=== PATIENT | male | born 1965 | race Caucasian/White ===

== ENCOUNTER 2016-10-10 08:35 | Inpatient (IN) | payer OTHER ==
[2016-10-10 09:45] VITALS: BMI 28.3
--- NOTE | 2016-10-10 11:52 | HP ---
CIWA Score - CIWA Score Nausea/Vomitin (N/V/D) Muscle Tremors: 4-Moderate,w/Arms Extend Anxiety: 4-Mod. Anxious/Guarded Agitation: 4-Moderately Restless Paroxysmal Sweats: 3 Orientation: 0-Oriented Tacttile Disturbances: 3-Moderate Itch/Numb/Burn Auditory Disturbances: 0-None Visual Disturbances: 0-None Headache: 0-None Present CIWA-Ar Total Score: 23 Admission ROS [facility] - HPI Chief Complaint: DETOX TX FOR ALCOHOL DEPENDENCE Allergies/Adverse Reactions: Allergies Allergy/AdvReac Type Severity Reaction Status Date / Time Fish Containing Products Allergy Severe Nausea Verified 10/10/16 10:51 No Known Drug Allergies Allergy Verified 10/10/16 10:51 History of Present Illness: 51 Y/O H/M WITH A HX OF ALCOHOL DEPENDENCE ON METHADONE MAINTENANCE SEEKING DETOX TX Exam Limitations: No Limitations - Ebola screening Have you traveled outside of the country in the last 21 days: No Have you had contact with anyone from an Ebola affected area: No Have you been sick,other than usual withdrawal symptoms: No Do you have a fever: No - Review of Systems Constitutional: Chills, Loss of Appetite, Night Sweats, Changes in sleep (ON SEROQUEL) EENT: reports: Blurred Vision (WEARS READING GLASSES), Tearing, Nose Congestion , Dental Problems (BILATERAL DENTURES) Respiratory: reports: No Symptoms reported Cardiac: reports: Lightheadedness GI: reports: Constipated, Diarrhea, Nausea, Poor Appetite, Poor Fluid Intake, Vomiting, Abdominal cramping : reports: Frequency Musculoskeletal: reports: Back Pain, Joint Pain, Muscle Pain Neuro: reports: Tremors, Unsteady Gait, Dizziness Endocrine: reports: No Symptoms Reported Hematology: reports: Anemia Psychiatric: reports: Orientated x3, Agitated, Anxious, Depressed Other Systems: Reviewed and Negative Patient History - Patient Medical History Hx Anemia: No Hx Asthma: No Hx Chronic Obstructive Pulmonary Disease (COPD): No Hx Cancer: No Hx Cardiac Disorders: No Hx Congestive Heart Failure: No Hx Hypertension: No Hx Hypercholesterolemia: No Hx Pacemaker: No HX Cerebrovascular Accident: No Hx Seizures: No Hx Dementia: No Hx Diabetes: No Hx Gastrointestinal Disorders: No Hx Liver Disease: No Hx Genitourinary Disorders: No Hx Sexually Transmitted Disorders: No Hx Renal Disease (ESRD): No Hx Thyroid Disease: No Hx Human Immunodeficiency Virus (HIV): No Hx Hepatitis C: Yes Hx Depression: Yes Hx Suicide Attempt: Yes (Tried to cut wrist in 2014;DENIES CURRENT IDEATIONS) Hx Schizophrenia: No - Patient Surgical History Past Surgical History: Yes Hx Orthopedic Surgery: Yes (2006 r ankle fx) Anesthesia Reaction: No - PPD History Previous Implant?: Yes Documented Results: Negative w/o proof Implanted On Prior R Admission?: No PPD to be Administered?: Yes - Reproductive History Patient is a Female of Child Bearing Age (11 -55 yrs old): No (MALE) - Smoking Cessation Smoking history: Current every day smoker Have you smoked in the past 12 months: Yes Aproximately how many cigarettes per day: 10 Hx Chewing Tobacco Use: No Initiated information on smoking cessation: Yes 'Breaking Loose' booklet given: 10/10/16 - Substance & Tx. History Hx Alcohol Use: Yes (BEER) Hx Substance Use: Yes (HEROIN/VODKA) Substance Use Type: Alcohol, Heroin Hx Substance Use Treatment: Yes ([facility]) - Substances Abused Alcohol Route: Oral Frequency: Daily Amount used: 12 pk beer Age of first use: 21 Date of Last Use: 10/08/16 Heroin Route: Inhalation Frequency: Daily Amount used: 2 bags Age of first use: 22 Date of Last Use: 10/09/16 Family Disease History - Family Disease History Family Disease History: Diabetes: Father (dec'd ~55 from a fall, hx dialysis), Other: Grandparent (all dec'd natural causes), Father, Mother (a&w), Brother (4 a&w), Sister (3 a&w), Son (1 a&w) Admission Physical Exam [facility] - Vital Signs Vital Signs: Vital Signs - 24 hr 10/10/16 09:43 Temperature 96.8 F L Pulse Rate 77 Respiratory 18 Rate Blood Pressure 154/93 - Physical General Appearance: Yes: Moderate Distress, Irritable, Anxious HEENTM: Yes: EOMI, Normocephalic, TISH, Pharynx Normal, Nasal Congestion, Rhinorrhea Respiratory: Yes: Chest Non-Tender, Lungs Clear, Normal Breath Sounds, No Respiratory Distress Neck: Yes: Supple, Trachea in good position Breast: Yes: Breast Exam Deferred Cardiology: Yes: Regular Rhythm, Regular Rate, S1, S2 Abdominal: Yes: Normal Bowel Sounds, Non Tender, Soft Genitourinary: Yes: Other (N/C) Musculoskeletal: Yes: full range of Motion, Gait Steady Extremities: Yes: Normal Range of Motion, Non-Tender 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 urge to avoid etoh. he states he does not have sexual relations or engage in ivdu. he is looking forward to getting treated. (2) Hepatitis C antibody test positive Current Visit: Yes Status: Chronic Comment: Completed U/S Of Abdomen - Reiviewd results with patient, re-scheduled to see Lida Le for f/u. (3) Methadone maintenance therapy patient Current Visit: Yes Status: Chronic Comment: states comfortable on current dose, monitor. (4) Alcohol dependence with uncomplicated withdrawal Current Visit: Yes Status: Acute (5) Nicotine dependence Current Visit: Yes Status: Chronic Qualifiers: Nicotine product type: cigarettes Substance use status: uncomplicated Qualified Code(s): F17.210 - Nicotine dependence, cigarettes, uncomplicated Cleared for Admission S - Detox or Rehab [facility] Level of Care: Medically Managed Detox Regimen/Protocol: Librium [facility] Breath Alcohol Content Breath Alcohol Content: 0 Urine Drug Screen - Results Drug Screen Negative: No Urine Drug Screen Results: OPI-Opiates, BZO-Benzodiazepines, MTD-Methadone, TCA- Tricyclic Antidepress
[2016-10-10] MEDS ORDERED: guaiFENesin/D-METHORPHAN HB 10 ML UNIT-DOSE CUPS PO PRN (12:00)
[2016-10-10] MEDS ORDERED: MAGNESIUM CITRATE 300 ML BOTTLE PO PRN (12:00)
[2016-10-10] MEDS ORDERED: chlordiazePOXIDE HCL 25 MG CAPSULE PO PRN (12:00)
[2016-10-10] MEDS ORDERED: P-EPHED 60MG/TRIPROLIDI 2.5MG TABLET PO PRN (12:00)
[2016-10-10] MEDS ORDERED: diphenhydrAMINE HCL 50 MG CAPSULE PO PRN (12:00)
[2016-10-10] MEDS ORDERED: LOPERAMIDE HCL 2 MG CAPSULE PO PRN (12:00)
[2016-10-10] MEDS ORDERED: MAGNESIUM HYDROX 2400MG/30ML ORAL SUSPENSION 30 ML CUP PO PRN (12:00)
[2016-10-10] MEDS ORDERED: ACETAMINOPHEN 325 MG TABLET (FP) PO PRN (12:00)
[2016-10-10] MEDS ORDERED: MAG HYDROX/AL HYDROX/SIMETH 30 ML UNIT-DOSE CUP PO PRN (12:00)
[2016-10-10] MEDS ORDERED: NICOTINE POLACRILEX 2 MG GUM BUC PRN (12:00)
[2016-10-10] MEDS ORDERED: hydrOXYzine PAMOATE 25 MG CAPSULE (FP) PO PRN (12:00)
[2016-10-10] MEDS ORDERED: MENTHOL/PHENOL 1 EACH UD MM PRN (12:00)
[2016-10-10] MEDS ORDERED: IBUPROFEN 400 MG TABLET (FP) PO PRN (12:00)
[2016-10-10] MEDS ORDERED: chlordiazePOXIDE HCL 25 MG CAPSULE PO ONE (12:12)
[2016-10-10] MEDS: NICOTINE 14 MG/24 HOURS TOPICAL PATCH TD SCH (13:06)
[2016-10-10 16:05] LABS: URINE APPEARANCE CLEAR; URINE BILIRUBIN NEGATIVE (NEGATIVE); URINE BLOOD NEGATIVE (NEGATIVE); URINE COLOR AMBER; URINE GLUCOSE (UA) NEGATIVE (NEGATIVE); URINE KETONE NEGATIVE (NEGATIVE); URINE LEUK ESTERASE NEGATIVE (NEGATIVE); URINE NITRITE NEGATIVE (NEGATIVE); URINE PROTEIN NEGATIVE (NEGATIVE); URINE UROBILINOGEN 4.0 E.U/dl E.U./dl (0.2-1.0)
[2016-10-10] MEDS: chlordiazePOXIDE HCL 25 MG CAPSULE PO SCH ×2 (17:33→22:32)
[2016-10-10] MEDS: THIAMINE HCL 100 MG TABLET (FP) PO SCH (22:32)
[2016-10-11] MEDS: METHADONE HCL 40 MG DISPERSABLE TABLET PO SCH (05:38)
[2016-10-11] MEDS: chlordiazePOXIDE HCL 25 MG CAPSULE PO SCH ×4 (05:38→22:21)
--- NOTE | 2016-10-11 09:46 | PN ---
S CIWA - CIWA Score Nausea/Vomitin-No Nausea/No Vomiting Muscle Tremors: 4-Moderate,w/Arms Extend Anxiety: 3 Agitation: 3 Paroxysmal Sweats: 3 Orientation: 0-Oriented Tacttile Disturbances: 0-None Auditory Disturbances: 0-None Visual Disturbances: 0-None Headache: 1-Very Mild CIWA-Ar Total Score: 14 S Progress Note (SOAP) Subjective: shakes sweats interrupted sleep body aches Objective: 10/11/16 09:45 Vital Signs Temperature 98.1 F 10/11/16 06:30 Pulse Rate 66 10/11/16 06:30 Respiratory Rate 16 10/11/16 06:30 Blood Pressure 140/82 10/11/16 06:30 O2 Sat by Pulse Oximetry (%) Laboratory Tests 10/10/16 15:00 Urine Color Chasidy Urine Appearance Clear Urine pH 5.0 Ur Specific [place] 1.030 Urine Protein Negative Urine Glucose (UA) Negative Urine Ketones Negative Urine Blood Negative Urine Nitrite Negative Urine Bilirubin Negative Urine Urobilinogen 4.0 e.u/dl Ur Leukocyte Esterase Negative labs pending awake/alert ambulating no acute distress Assessment: 10/11/16 09:45 withdrawal sx Plan: continue detox increase fluids labs pending
[2016-10-11] MEDS: NICOTINE 14 MG/24 HOURS TOPICAL PATCH TD SCH (10:27)
[2016-10-11] MEDS: PRENATAL VITAMINS W/ FOLIC ACID TABLET (FP) PO SCH (10:28)
[2016-10-11 10:32] LABS: MCH 33.2 pg (25.7-33.7); MEAN CELL VOLUME 97.7 fl (80-96); MEAN PLT VOLUME 9.7 fl (7.5-11.1); PLATELET COUNT 173 K/MM3 (134-434); RDW 12.8 % (11.9-15.9); WHITE BLOOD COUNT 4.3 K/mm3 (4.0-10.0)
[2016-10-11 10:33] LABS: ALBUMIN 3.7 g/dl (3.4-5.0); ANION GAP 4 (8-16); CALCIUM 8.8 mg/dL (8.5-10.1); CO2 32 mmol/L (21-32); CREATININE 0.8 mg/dL (0.7-1.3); GLUCOSE,RANDOM 100 mg/dL (74-106); SGOT/AST 173 U/L (15-37); SGPT/ALT 193 U/L (12-78)
[2016-10-11 10:51] LABS: ALK PHOS 128 U/L (45-117); BILIRUBIN,TOTAL 0.6 mg/dL (0.2-1.0); TOT PROT 8.3 g/dl (6.4-8.2)
[2016-10-11 11:01] LABS: SICKLE CELL SCREEN NEGATIVE (NEGATIVE)
--- NOTE | 2016-10-11 11:51 | EKG ---
Test Reason : Blood Pressure : / mmHG Vent. Rate : 063 BPM Atrial Rate : 063 BPM P-R Int : 130 ms QRS Dur : 086 ms QT Int : 502 ms P-R-T Axes : 054 046 069 degrees QTc Int : 513 ms NORMAL SINUS RHYTHM PROLONGED QT ABNORMAL ECG NO PREVIOUS ECGS AVAILABLE Confirmed by CONCEPCION AVILA, EBONY ([id number]) on 10/11/2016 11:50:42 AM Referred By: Ponce Dillon Confirmed By:EBONY JAVIER MD
--- NOTE | 2016-10-11 12:35 | CONSULT ---
[facility] Psychiatric Consult - Data Date of interview: 10/11/16 Admission source: [facility] HIV clinic Identifying data: Mr Moore is a 51 years old single male, father of a 25 years old son, unemployed on SSD, living in a [facility] subsidized room Substance Abuse History: - Smoking Cessation. Smoking history: Current every day smoker. Have you smoked in the past 12 months: Yes. Aproximately how many cigarettes per day: 10. Hx Chewing Tobacco Use: No. Initiated information on smoking cessation: Yes. 'Breaking Loose' booklet given: 10/10/16. - Substance & Tx. History. Hx Alcohol Use: Yes (BEER). Hx Substance Use: Yes (HEROIN/VODKA ). Substance Use Type: Alcohol, Heroin. Hx Substance Use Treatment: Yes ([facility]). - Substances Abused. Alcohol. Route: Oral. Frequency: Daily. Amount used: 12 pk beer. Age of first use: 21. Date of Last Use: 10/08. Heroin. Route: Inhalation. Frequency: Daily. Amount used: 2 bags. Age of first use: 22. Date of Last Use: 10/09/16 Medical History: No significant medical problem. He is on Methadone 80 mg po daily. Smokes 10 cigarettes daily Psychiatric History: Patient is a poor, unreliable historian. Reports that his first psychiatric contact was in 2013 when he made a suicidal attempt by cutting his wrist. He was taken to [facility] ED where he was observed and discharged on Seroquel. He has been attending [facility] since [address] Boland who prescribed him Seroquel 300 mg po HS. Claims he took it last night. Denies history of previous hospitalization Mental Status Exam - Mental Status Exam Alert and Oriented to: Time, Place, Person Cognitive Function: Fair Patient Appearance: Well Groomed Mood: Hopeful, Euthymic Affect: Appropriate Patient Behavior: Cooperative Speech Pattern: Clear Voice Loudness: Normal Thought Process: Intact Thought Disorder: Not Present Hallucinations: Denies Suicidal Ideation: Denies, Past, Plan Homicidal Ideation: Denies Insight/Judgement: Poor Sleep: Poorly Appetite: Good Muscle strength/Tone: Normal Gait/Station: Normal Psychiatric Findings - Problem List ([place] 1, 2,3) (1) Alcohol dependence with uncomplicated withdrawal Current Visit: Yes Status: Acute (2) Opioid dependence on agonist therapy Current Visit: Yes Status: Acute (3) Nicotine dependence Current Visit: Yes Status: Chronic Qualifiers: Nicotine product type: cigarettes Substance use status: uncomplicated Qualified Code(s): F17.210 - Nicotine dependence, cigarettes, uncomplicated (4) Hepatitis C antibody test positive Current Visit: Yes Status: Chronic Comment: Completed U/S Of Abdomen - Reiviewd results with patient, re-scheduled to see Lida Le for f/u. (5) Substance-induced sleep disorder Current Visit: Yes Status: Acute - Initial Treatment Plan Initial Treatment Plan: 1) Continue Seroquel 300 mg po HS. 2) Continue inpt detox
[2016-10-11] MEDS: QUEtiapine FUMARATE 300 MG TABLET PO SCH (22:21)
[2016-10-11] MEDS: THIAMINE HCL 100 MG TABLET (FP) PO SCH (22:21)
[2016-10-12] MEDS: chlordiazePOXIDE HCL 25 MG CAPSULE PO SCH ×2 (05:41→10:45)
[2016-10-12] MEDS: METHADONE HCL 40 MG DISPERSABLE TABLET PO SCH (05:41)
--- NOTE | 2016-10-12 09:40 | PN ---
S CIWA - CIWA Score Nausea/Vomitin Muscle Tremors: 2 Anxiety: 2 Agitation: 2 Paroxysmal Sweats: 2 Orientation: 0-Oriented Tacttile Disturbances: 1-Very Mild Itch/Numbness Auditory Disturbances: 0-None Visual Disturbances: 0-None Headache: 0-None Present CIWA-Ar Total Score: 11 S Progress Note (SOAP) Subjective: interrupted sleep ,sweats, otherwise feeling better Objective: 10/12/16 09:38 Vital Signs Temperature 98.2 F 10/12/16 06:48 Pulse Rate 62 10/12/16 06:48 Respiratory Rate 16 10/12/16 06:48 Blood Pressure 140/69 10/12/16 06:48 O2 Sat by Pulse Oximetry (%) Laboratory Tests 10/10/16 10/11/16 10/11/16 15:00 05:30 05:30 WBC 4.3 RBC 4.49 Hgb 14.9 Hct 43.9 MCV 97.7 H MCHC 34.0 RDW 12.8 Plt Count 173 D MPV 9.7 Sickle Cell Screen Negative Sodium 139 Potassium 4.3 Chloride 103 Carbon Dioxide 32 Anion Gap 4 L BUN 14 D Creatinine 0.8 Creat Clearance w eGFR > 60 Random Glucose 100 Calcium 8.8 Total Bilirubin 0.6 D AST 173 H D ALT 193 H D Alkaline Phosphatase 128 H Total Protein 8.3 H Albumin 3.7 Urine Color Chasidy Urine Appearance Clear Urine pH 5.0 Ur Specific [place] 1.030 Urine Protein Negative Urine Glucose (UA) Negative Urine Ketones Negative Urine Blood Negative Urine Nitrite Negative Urine Bilirubin Negative Urine Urobilinogen 4.0 e.u/dl Ur Leukocyte Esterase Negative RPR Titer 10/11/16 05:30 WBC RBC Hgb Hct MCV MCHC RDW Plt Count MPV Sickle Cell Screen Sodium Potassium Chloride Carbon Dioxide Anion Gap BUN Creatinine Creat Clearance w eGFR Random Glucose Calcium Total Bilirubin AST ALT Alkaline Phosphatase Total Protein Albumin Urine Color Urine Appearance Urine pH Ur Specific [place] Urine Protein Urine Glucose (UA) Urine Ketones Urine Blood Urine Nitrite Urine Bilirubin Urine Urobilinogen Ur Leukocyte Esterase RPR Titer Nonreactive pt aox3 in nad lying in bed Assessment: 10/12/16 09:38 withdrawl sx's elevated transaminases hep c Plan: cont. detox increase fluids repeat sgot/sgpt d/c tylenol
[2016-10-12] MEDS: PRENATAL VITAMINS W/ FOLIC ACID TABLET (FP) PO SCH (10:44)
[2016-10-12] MEDS: NICOTINE 14 MG/24 HOURS TOPICAL PATCH TD SCH (10:44)
[2016-10-12] MEDS: chlordiazePOXIDE 5 MG CAPSULE PO SCH ×2 (17:12→22:18)
[2016-10-12] MEDS: THIAMINE HCL 100 MG TABLET (FP) PO SCH (22:18)
[2016-10-12] MEDS: QUEtiapine FUMARATE 300 MG TABLET PO SCH (22:18)
[2016-10-13] MEDS: chlordiazePOXIDE 5 MG CAPSULE PO SCH ×2 (05:40→10:05)
[2016-10-13] MEDS: METHADONE HCL 40 MG DISPERSABLE TABLET PO SCH (05:40)
[2016-10-13] MEDS: PRENATAL VITAMINS W/ FOLIC ACID TABLET (FP) PO SCH (10:05)
[2016-10-13] MEDS: NICOTINE 14 MG/24 HOURS TOPICAL PATCH TD SCH (10:05)
--- NOTE | 2016-10-13 11:09 | PN ---
BHS Progress Note (SOAP) Subjective: feeling better little sweats Objective: 10/13/16 11:08 Vital Signs Temperature 97.6 F 10/13/16 10:00 Pulse Rate 74 10/13/16 10:00 Respiratory Rate 18 10/13/16 10:00 Blood Pressure 132/75 10/13/16 10:00 O2 Sat by Pulse Oximetry (%) awake/alert ambulating no acute distress Assessment: 10/13/16 11:09 withdrawal sx Plan: continue detox increase fluids d/c in am
[2016-10-13 11:27] LABS: SGOT/AST 155 U/L (15-37); SGPT/ALT 187 U/L (12-78)
[2016-10-13] MEDS: chlordiazePOXIDE HCL 10 MG CAPSULE PO SCH ×2 (17:08→22:27)
[2016-10-13] MEDS: THIAMINE HCL 100 MG TABLET (FP) PO SCH (22:27)
[2016-10-13] MEDS: QUEtiapine FUMARATE 300 MG TABLET PO SCH (22:27)
[2016-10-14] MEDS: METHADONE HCL 40 MG DISPERSABLE TABLET PO SCH (05:43)
[2016-10-14] MEDS: chlordiazePOXIDE HCL 10 MG CAPSULE PO SCH (05:43)
[2016-10-14 06:28] VITALS: BP 124/63; PULSE 61; TEMP 97.1
== END 2016-10-14 08:34 | disposition home or self-care (01) | DRG 773 ==
LOC: YASAS 08:35 → Y6N 11:28
PROVIDERS: ADMIT Internal Medicine Addiction Medicine; ATTEND Internal Medicine Addiction Medicine
PROC: HZ2ZZZZ Detoxification Services for Substance Abuse Treatment (ICD-10-PCS; principal; 2016-10-10)
DX: F10.230 Alcohol dependence with withdrawal, uncomplicated (principal); F11.20 Opioid dependence, uncomplicated; F17.210 Nicotine dependence, cigarettes, uncomplicated; F19.282 Other psychoactive substance dependence with psychoactive substance-induced sleep disorder; R74.0 Nonspecific elevation of levels of transaminase and lactic acid dehydrogenase [LDH]; B18.2 Chronic viral hepatitis C; Z91.5 Personal history of self-harm
CPT/HCPCS: 36415; 80053; 81003; 84450; 84460; 85027; 85660; 86593; 93005; 93010

== ENCOUNTER 2019-11-20 08:41 | Inpatient (IN) | payer OTHER ==
--- NOTE | 2019-11-20 09:14 | BHS.RME ---
Substance Use & Tx History - Substance Use History Opiates (Heroin) Substance amount: 4 bags Frequency of use: Daily Substance route: Inhalation (ex: sniffing or snorting) Date of Last Use: 11/20/19 Nicotine Substance amount: 5-6 Frequency of use: Daily Substance route: Smoking Date of Last Use: 11/20/19 Physical/Psych/Mental Status - Behavior General Behavior: Increased activity (restlessness, agitation) Eye Contact: Normal - Cooperativeness Cooperativeness: Cooperative - Thinking Thought Processes: Tight Thought content: Future oriented - Physical Health Problems Is patient presently having any pain?: No Does patient presently have any injuries (include location): No Does patient currently have a fever: No Is patient : No COWS - Scale Resting Pulse: 0= [place] 80 or Below Sweatin= No chills or Flushing Restless Observation: 0= Sits Still Pupil Size: 0= Normal to Room Light Bone or Joint Aches: 0= None Runny Nose/ Eye Tearin= None GI Upset > 30mins: 0= None Tremor Observation: 0= None Yawning Observation: 0= None Anxiety or Irritability: 0= None Goose Flesh Skin: 0=Smooth Skin COWS Score: 0
[2019-11-20 11:05] VITALS: BMI 30.9
--- NOTE | 2019-11-20 11:33 | HP ---
COWS - Scale Resting Pulse: 0= [place] 80 or Below (used today so not in withdrawals yet.) Sweatin= No chills or Flushing Restless Observation: 0= Sits Still Pupil Size: 0= Normal to Room Light Bone or Joint Aches: 0= None Runny Nose/ Eye Tearin= None GI Upset > 30mins: 0= None Tremor Observation: 0= None Yawning Observation: 0= None Anxiety or Irritability: 0= None Goose Flesh Skin: 0=Smooth Skin COWS Score: 0 CIWA Score - Admission Criteria [facility]ASAS Guidelines: Admission for Medically Managed Detox: Requires at least one of the followin. CIWA greater than 12 2. Seizures within the past 24 hours 3. Delirium tremens within the past 24 hours 4. Hallucinations within the past 24 hours 5. Acute intervention needed for co occurring medical disorder 6. Acute intervention needed for co occurring psychiatric disorder 7. Severe withdrawal that cannot be handled at a lower level of care (continued vomiting, continued diarrhea, abnormal vital signs) requiring intravenous medication and/or fluids 8. Admitting History and Physical - Admission Chief Complaint: " I want to be detoxed off of heroin." History of Present Illness: 54 year old male with history of opioid dependence who was in [facility] on 90 mg of methadone maintenance, but due to his prolonged QTc he was transfered to [facility] for Suboxone. However, because his insurance had he wasn' t able to fill the prescription so he relapsed using heroin once again. Heroin: 4 bags heroin daily, used this morning PMH: Heart murmur 2019 has follow up at [address] [place] [address], HTN, HCV treated. Psurg: Right ankle fracture 2005 Psych: None He is seeking detox due to his relapse on heroin. He has poor support systems and needs constructive environment to remain abstinent. The plan is to admit him and resume suboxone and then re-link him to MAT at [place]. History Source: Patient Limitations to Obtaining History: No Limitations - Past Medical History Cardiovascular: Yes: HTN, Murmur Infectious Disease: Yes: Other (HCV treated) - Past Surgical History Past Surgical History: Yes: None - Smoking History Smoking history: Current every day smoker Have you smoked in the past 12 months: Yes Aproximately how many cigarettes per day: 5 - Alcohol/Substance Use Hx Alcohol Use: Yes (BEER) History of Substance Use: reports: Cocaine, Heroin - Social History Usual Living Arrangement: Yes: Alone Do you think of yourself as: Straight/Heterosexual ADL: Independent Occupation: unemployed History of Recent Travel: No Admission ROS [facility] Allergies/Adverse Reactions: Allergies Allergy/AdvReac Type Severity Reaction Status Date / Time Fish Containing Products Allergy Severe Nausea Verified 11/20/19 10:50 No Known Drug Allergies Allergy Verified 11/20/19 10:50 Exam Limitations: No Limitations - Ebola screening Have you traveled outside of the country in the last 21 days: No Have you had contact with anyone from an Ebola affected area: No Have you been sick,other than usual withdrawal symptoms: No Do you have a fever: No - Review of Systems Constitutional: No Symptoms Reported EENT: reports: No Symptoms Reported Respiratory: reports: No Symptoms reported Cardiac: reports: No Symptoms Reported GI: reports: No Symptoms Reported : reports: No Symptoms Reported Musculoskeletal: reports: No Symptoms Reported Integumentary: reports: No Symptoms Reported Neuro: reports: No Symptoms reported Endocrine: reports: No Symptoms Reported Hematology: reports: No Symptoms Reported Psychiatric: reports: Judgement Intact, Mood/Affect Appropiate, Orientated x3, Anxious Other Systems: Reviewed and Negative Patient History - Patient Medical History Hx Anemia: No Hx Asthma: No Hx Chronic Obstructive Pulmonary Disease (COPD): No Hx Cancer: No Hx Cardiac Disorders: No Hx Congestive Heart Failure: No Hx Hypertension: Yes Hx Hypercholesterolemia: No Hx Pacemaker: No HX Cerebrovascular Accident: No Hx Seizures: No Hx Dementia: No Hx Diabetes: No Hx Gastrointestinal Disorders: No Hx Liver Disease: No Hx Genitourinary Disorders: No Hx Sexually Transmitted Disorders: No Hx Renal Disease (ESRD): No Hx Thyroid Disease: No Hx Human Immunodeficiency Virus (HIV): No Hx Hepatitis C: Yes (treated) Hx Depression: No Hx Suicide Attempt: No Hx Schizophrenia: No - Patient Surgical History Past Surgical History: Yes Hx Neurologic Surgery: No Hx Cataract Extraction: No Hx Cardiac Surgery: No Hx Lung Surgery: No Hx Breast Surgery: No Hx Breast Biopsy: No Hx Abdominal Surgery: No Hx Appendectomy: No Hx Cholecystectomy: No Hx Genitourinary Surgery: No Hx Section: No Hx Orthopedic Surgery: Yes (2006 r ankle fx) Anesthesia Reaction: No - PPD History Documented Results: Negative w/o proof Implanted On Prior [facility] Admission?: Yes Date: 10/12/16 Results: negative PPD to be Administered?: Yes - Smoking Cessation Smoking history: Current every day smoker Have you smoked in the past 12 months: Yes Aproximately how many cigarettes per day: 5 Cigars Per Day: 0 Hx Chewing Tobacco Use: No Initiated information on smoking cessation: Yes 'Breaking Loose' booklet given: 11/20/19 - Substances abused Heroin Substance route: Inhalation Frequency: Daily Amount used: 4 bags Age of first use: 20 Date of last use: 11/20/19 Crack Other (specify): $100 Substance route: Smoking Frequency: Daily Amount used: $100 Age of first use: 34 Date of last use: 11/20/19 Admission Physical Exam [facility] - Vital Signs Vital Signs: Vital Signs - 24 hr 11/20/19 11:02 Temperature 98.5 F Pulse Rate 72 Respiratory 18 Rate Blood Pressure 138/75 - Physical General Appearance: Yes: No Apparent Distress, Nourished, Disheveled, Mild Distress HEENTM: Yes: EOMI, Hearing grossly Normal, Normal ENT Inspection, Normocephalic , Normal Voice, TISH, Pharynx Normal, Tm's normal Respiratory: Yes: Chest Non-Tender, Lungs Clear, Normal Breath Sounds, No Respiratory Distress, No Accessory Muscle Use Neck: Yes: No masses,lesions,Nodules, Supple, Trachea in good position Breast: Yes: Within Normal Limits Cardiology: Yes: Regular Rhythm, Regular Rate, S1, S2 Abdominal: Yes: Normal Bowel Sounds, Non Tender, Flat, Soft Genitourinary: Yes: Within Normal Limits Back: Yes: Normal Inspection Musculoskeletal: Yes: full range of Motion, Gait Steady, Pelvis Stable Extremities: Yes: Normal Capillary Refill, Normal Inspection, Normal Range of Motion, Non-Tender 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 - continue f/u discussed avoid etoh Consult from 07/12/18: 07/12/18 - HCV RT-PCR Quant - HCV not detected Impression and Plan: HCV, off treatment x 3 months Blood drawn for testing for sustained viral response, liver chemistry tests, and hbsag. Needs to be checked every 3 months for 1 year; this is primarily to be checked for reactivation of hep B, which can occur after HCV eradication. (3) Hypertension Current Visit: Yes Status: Chronic Comment: continue hctz 12.5 mg po daily, asa 81 mg daily (for ctd plaque as per cardio) discussed adherence, low salt diet, increase potassium-rich foods, importance of f/u and monitoring (4) Nicotine dependence Current Visit: Yes Status: Chronic Qualifiers: Nicotine product type: cigarettes Substance use status: uncomplicated Qualified Code(s): F17.210 - Nicotine dependence, cigarettes, uncomplicated Comment: discussed smoking cessation, risks a/w smoking, benefits of quitting (5) Systolic murmur Current Visit: Yes Status: Chronic Comment: continue f/u with cardio, Dr. Olson; next appt approx 12/2019 Cleared for Admission S - Detox or Rehab [facility] Level of Care: Medically Managed Detox Regimen/Protocol: Suboxone Claeared for Rehab Admission: No Screened but not Admitted - Documentation of Visit Screened but not Admitted: No Inpatient Rehab Admission - Rehab Decision to Admit Inpatient rehab admission?: No
[2019-11-20] MEDS ORDERED: MENTHOL/PHENOL 1 EACH UD MM PRN (11:40)
[2019-11-20] MEDS ORDERED: MAGNESIUM HYDROX 2400MG/30ML ORAL SUSPENSION 30 ML CUP PO PRN (11:40)
[2019-11-20] MEDS ORDERED: IBUPROFEN 400 MG TABLET (FP) PO PRN (11:40)
[2019-11-20] MEDS ORDERED: MAGNESIUM CITRATE 300 ML BOTTLE PO PRN (11:40)
[2019-11-20] MEDS ORDERED: ACETAMINOPHEN 325 MG TABLET (FP) PO PRN ×2 (11:40)
[2019-11-20] MEDS ORDERED: METHOCARBAMOL 500 MG TABLET PO PRN (11:40)
[2019-11-20] MEDS ORDERED: BISMUTH SUBSALICYLATE 262 MG/15 ML BTL PO PRN (11:40)
[2019-11-20] MEDS ORDERED: hydrOXYzine PAMOATE 25 MG CAPSULE (FP) PO PRN (11:40)
[2019-11-20] MEDS ORDERED: MAG HYDROX/AL HYDROX/SIMETH 30 ML UNIT-DOSE CUP PO PRN (11:40)
[2019-11-20] MEDS: NICOTINE 7 MG/24 HOURS TOPICAL PATCH TD SCH (12:39)
[2019-11-20 14:52] LABS: HEMATOCRIT 42.2 % (35.4-49); HEMOGLOBIN 14.3 GM/dL (11.7-16.9); MCH 32.6 pg (25.7-33.7); MCHC 33.9 g/dl (32.0-35.9); MEAN CELL VOLUME 96.2 fl (80-96); MEAN PLT VOLUME 9.4 fl (7.5-11.1); PLATELET COUNT 266 K/MM3 (134-434); RBC 4.38 M/mm3 (4.00-5.60); RDW 12.7 % (11.9-15.9); WHITE BLOOD COUNT 7.1 K/mm3 (4.0-10.0)
[2019-11-20 15:01] LABS: ALBUMIN 4.1 g/dl (3.4-5.0); BILIRUBIN,TOTAL 0.8 mg/dL (0.2-1); BLOOD UREA NITROGEN 14.5 mg/dL (7-18); CALCIUM 9.6 mg/dL (8.5-10.1); CREATININE 0.8 mg/dL (0.55-1.3); POTASSIUM 4.9 mmol/L (3.5-5.1); TOT PROT 7.7 g/dl (6.4-8.2)
[2019-11-20] MEDS: THIAMINE HCL 100 MG TABLET (FP) PO SCH (22:01)
[2019-11-20] MEDS: MELATONIN 5 MG TABLETS PO PRN (22:02)
[2019-11-21] MEDS ORDERED: HYDROCHLOROTHIAZIDE 12.5 MG CAPSULE (FP) PO SCH (10:00)
[2019-11-21] MEDS ORDERED: BUPRENORPHINE/NALOXONE 8 MG/2 MG FILM PACKET SL SCH (10:00)
[2019-11-21] MEDS ORDERED: ERGOCALCIFEROL (VIT D2) 50,000 UNIT (1.25 MG) CAPSULE PO SCH (10:00)
[2019-11-21] MEDS ORDERED: ASPIRIN 81 MG CHEWABLE TABLETS PO SCH (10:00)
[2019-11-21] MEDS ORDERED: PRENATAL VITAMINS W/ FOLIC ACID TABLET (FP) PO SCH (10:00)
[2019-11-21] MEDS: NICOTINE 7 MG/24 HOURS TOPICAL PATCH TD SCH (10:56)
--- NOTE | 2019-11-21 11:11 | PN ---
S COWS - Scale Resting Pulse: 0= TX 80 or Below Sweatin= No chills or Flushing Restless Observation: 1= Difficult to Sit Still Pupil Size: 1= Pupils >than Normal Bone or Joint Aches: 2= Severe Diffuse Aches Runny Nose/ Eye Tearin= Runny Nose/Eyes GI Upset > 30mins: 2= Nausea/Diarrhea Tremor Observation of Outstretched Hands: 2= Slight Tremor Visible Yawning Observation: 1= 1-2x During Session Anxiety or Irritability: 2=Irritable/Anxious Goose Flesh Skin: 0=Smooth Skin COWS Score: 13 [facility] Progress Note (SOAP) Subjective: alert,irritable,anxious,interrupted sleep,pain in the body and back,nausea, abdominal cramp Objective: 11/21/19 11:12 Vital Signs Temperature 98.3 F 11/21/19 09:07 Pulse Rate 57 L 11/21/19 09:07 Respiratory Rate 18 11/21/19 09:07 Blood Pressure 113/60 11/21/19 09:07 O2 Sat by Pulse Oximetry (%) Laboratory Last Values WBC 7.1 K/mm3 (4.0-10.0) 11/20/19 11:55 RBC 4.38 M/mm3 (4.00-5.60) 11/20/19 11:55 Hgb 14.3 GM/dL (11.7-16.9) 11/20/19 11:55 Hct 42.2 % (35.4-49) 11/20/19 11:55 MCV 96.2 fl (80-96) H 11/20/19 11:55 MCH 32.6 pg (25.7-33.7) 11/20/19 11:55 MCHC 33.9 g/dl (32.0-35.9) 11/20/19 11:55 RDW 12.7 % (11.9-15.9) 11/20/19 11:55 Plt Count 266 K/MM3 (134-434) 11/20/19 11:55 MPV 9.4 fl (7.5-11.1) 11/20/19 11:55 Sodium 138 mmol/L (136-145) 11/20/19 11:55 Potassium 4.9 mmol/L (3.5-5.1) 11/20/19 11:55 Chloride 103 mmol/L (98-107) 11/20/19 11:55 Carbon Dioxide 34 mmol/L (21-32) H 11/20/19 11:55 Anion Gap 2 MMOL/L (8-16) L 11/20/19 11:55 BUN 14.5 mg/dL (7-18) 11/20/19 11:55 Creatinine 0.8 mg/dL (0.55-1.3) 11/20/19 11:55 Est GFR (CKD-EPI)AfAm 117.38 11/20/19 11:55 Est GFR (CKD-EPI)NonAf 101.27 11/20/19 11:55 Random Glucose 93 mg/dL (74-106) 11/20/19 11:55 Calcium 9.6 mg/dL (8.5-10.1) 11/20/19 11:55 Total Bilirubin 0.8 mg/dL (0.2-1) 11/20/19 11:55 AST 21 U/L (15-37) 11/20/19 11:55 ALT 21 U/L (13-61) 11/20/19 11:55 Alkaline Phosphatase 92 U/L (45-117) 11/20/19 11:55 Total Protein 7.7 g/dl (6.4-8.2) 11/20/19 11:55 Albumin 4.1 g/dl (3.4-5.0) 11/20/19 11:55 RPR Titer Nonreactive (NONREACTIVE) 11/20/19 11:55 HIV 1&2 Antibody Screen Negative 11/20/19 11:55 HIV P24 Antigen Negative 11/20/19 11:55 Assessment: 11/21/19 11:13 withdrawal symptom Plan: continue suboxone 8mgs/2 mgs sl film daily,clonidine 0.1 mg po q 6 hrs prn for withdrawal
--- NOTE | 2019-11-21 12:53 | EKG ---
Test Reason : Blood Pressure : / mmHG Vent. Rate : 061 BPM Atrial Rate : 061 BPM P-R Int : 162 ms QRS Dur : 090 ms QT Int : 482 ms P-R-T Axes : 067 049 069 degrees QTc Int : 485 ms NORMAL SINUS RHYTHM INCREASED R/S RATIO IN V1, CONSIDER EARLY TRANSITION OR POSTERIOR INFARCT POSSIBLE LATERAL INFARCT , AGE UNDETERMINED ABNORMAL ECG WHEN COMPARED WITH ECG OF 26-SEP-2019 08:46, NO SIGNIFICANT CHANGE WAS FOUND Confirmed by POLO PALMA MD ([id number]) on 11/21/2019 12:53:07 PM Referred By: Confirmed By:POLO PALMA MD
[2019-11-21] MEDS: cloNIDine HCL 0.1 MG TABLET PO PRN ×2 (13:12→22:43)
[2019-11-21] MEDS: MELATONIN 5 MG TABLETS PO PRN (22:09)
[2019-11-21] MEDS: THIAMINE HCL 100 MG TABLET (FP) PO SCH (22:09)
[2019-11-22 09:54] VITALS: BP 149/78; PULSE 77; TEMP 97.5
--- NOTE | 2019-11-22 13:07 | DS ---
[facility] Detox Discharge Summary Admission Date: 11/20/19 Discharge Date: 11/22/19 - History Additional Comments: As per H&P: "54 year old male with history of opioid dependence who was in [facility] on 90mg of methadone maintenance, but due to his prolonged QTc he was transfered to [facility] for Suboxone. However, because his insurance had he wasn't able to fill the prescription so he relapsed using heroin once again. Heroin: 4 bags heroin daily, used this morning. He is seeking detox due to his relapse on heroin. He has poor support systems and needs constructive environment to remain abstinent. The plan is to admit him and resume suboxone and then re-link him to MAT at [facility]". Pt is medically cleared and discharged today. Pt is not on detox protocol. Pt requested to leave today. Pt is encouraged to follow-up with an outpatient CD program and also to follow-up with his pmd. Pt verbalized understanding of the information given. Pt is alert and oriented x3 and in no acute respiratory distress. Pertinent Past History: h/o HTN, and heroin use disorder. - Physical Exam Results Vital Signs: Vital Signs Temperature 97.5 F L 11/22/19 08:47 Pulse Rate 77 11/22/19 08:47 Respiratory Rate 18 11/22/19 08:47 Blood Pressure 149/78 11/22/19 08:47 O2 Sat by Pulse Oximetry (%) Vital Signs 11/22/19 11/22/19 07:21 08:47 Temperature 97.6 F 97.5 F L Pulse Rate 55 L 77 Respiratory 18 18 Rate Blood Pressure 152/72 149/78 Laboratory Last Values WBC 7.1 K/mm3 (4.0-10.0) 11/20/19 11:55 RBC 4.38 M/mm3 (4.00-5.60) 11/20/19 11:55 Hgb 14.3 GM/dL (11.7-16.9) 11/20/19 11:55 Hct 42.2 % (35.4-49) 11/20/19 11:55 MCV 96.2 fl (80-96) H 11/20/19 11:55 MCH 32.6 pg (25.7-33.7) 11/20/19 11:55 MCHC 33.9 g/dl (32.0-35.9) 11/20/19 11:55 RDW 12.7 % (11.9-15.9) 11/20/19 11:55 Plt Count 266 K/MM3 (134-434) 11/20/19 11:55 MPV 9.4 fl (7.5-11.1) 11/20/19 11:55 Sodium 138 mmol/L (136-145) 11/20/19 11:55 Potassium 4.9 mmol/L (3.5-5.1) 11/20/19 11:55 Chloride 103 mmol/L (98-107) 11/20/19 11:55 Carbon Dioxide 34 mmol/L (21-32) H 11/20/19 11:55 Anion Gap 2 MMOL/L (8-16) L 11/20/19 11:55 BUN 14.5 mg/dL (7-18) 11/20/19 11:55 Creatinine 0.8 mg/dL (0.55-1.3) 11/20/19 11:55 Est GFR (CKD-EPI)AfAm 117.38 11/20/19 11:55 Est GFR (CKD-EPI)NonAf 101.27 11/20/19 11:55 Random Glucose 93 mg/dL (74-106) 11/20/19 11:55 Calcium 9.6 mg/dL (8.5-10.1) 11/20/19 11:55 Total Bilirubin 0.8 mg/dL (0.2-1) 11/20/19 11:55 AST 21 U/L (15-37) 11/20/19 11:55 ALT 21 U/L (13-61) 11/20/19 11:55 Alkaline Phosphatase 92 U/L (45-117) 11/20/19 11:55 Total Protein 7.7 g/dl (6.4-8.2) 11/20/19 11:55 Albumin 4.1 g/dl (3.4-5.0) 11/20/19 11:55 RPR Titer Nonreactive (NONREACTIVE) 11/20/19 11:55 HIV 1&2 Antibody Screen Negative 11/20/19 11:55 HIV P24 Antigen Negative 11/20/19 11:55 Labs noted. Pertinent Admission Physical Exam Findings: withdrawal symptoms. - Treatment Hospital Course: Detox Protocol Followed, Discharged Condition Good - Medication Discharge Medications: Ambulatory Orders Aspirin [ASA -] 81 mg PO DAILY #30 tab.chew 09/30/19 Ergocalciferol (Vitamin D2) [Vitamin D2] 50,000 unit PO WEEKLY #4 capsule Hydrochlorothiazide [Hctz -] 12.5 mg PO DAILY #30 cap 09/30/19 Buprenorphine/Naloxone [Suboxone 8Mg/2Mg Sl Film -] 1 each SL TID 11/20/19 - Diagnosis (1) Encounter for monitoring Suboxone maintenance therapy Status: Chronic (2) Alcohol dependence with uncomplicated withdrawal Status: Chronic (3) Hepatitis C antibody test positive Status: Chronic (4) Hypertension Status: Chronic (5) Nicotine dependence Status: Chronic Qualifiers: Nicotine product type: cigarettes Substance use status: uncomplicated Qualified Code(s): F17.210 - Nicotine dependence, cigarettes, uncomplicated - AMA Did Patient Leave Against Medical Advice: No
== END 2019-11-22 10:18 | disposition home or self-care (01) | DRG 773 ==
LOC: YASAS 08:41 → Y3N 11:35
PROVIDERS: ADMIT Allergy & Immunology; ATTEND Allergy & Immunology
PROC: HZ2ZZZZ Detoxification Services for Substance Abuse Treatment (ICD-10-PCS; principal; 2019-11-20)
DX: F11.23 Opioid dependence with withdrawal (principal); F14.20 Cocaine dependence, uncomplicated; F17.210 Nicotine dependence, cigarettes, uncomplicated; I10 Essential (primary) hypertension; B18.2 Chronic viral hepatitis C; Z51.81 Encounter for therapeutic drug level monitoring; R01.1 Cardiac murmur, unspecified; R94.31 Abnormal electrocardiogram [ECG] [EKG]; Z91.013 Allergy to seafood
CPT/HCPCS: 36415; 80053; 85027; 86593; 87389; 93005; 93010; J0735

== ENCOUNTER 2021-08-03 13:42 | Emergency (ER) | payer OTHER ==
[2021-08-03 13:56] VITALS: BP 155/82; PULSE 75; TEMP 97.9; BMI 27.4
[2021-08-03] MEDS ORDERED: SODIUM CHLORIDE 1,000 ML IV STA (14:24)
[2021-08-03] MEDS ORDERED: ACETAMINOPHEN 1000 MG/100 ML VIAL IVPB ONE (14:24)
[2021-08-03] MEDS ORDERED: ACETAMINOPHEN INJECTION 100 ML IVPB ONE (14:41)
[2021-08-03 15:14] LABS: BASO % 0.2 % (0-2.0); EOS % 0.4 % (0-4.5); HEMATOCRIT 35.5 % (35.4-49); HEMOGLOBIN 12.1 GM/dL (11.7-16.9); MCH 33.4 pg (25.7-33.7); MCHC 34.2 g/dl (32.0-35.9); MEAN CELL VOLUME 97.8 fl (80-96); MEAN PLT VOLUME 8.3 fl (7.5-11.1); MONO % 7.6 % (3.8-10.2); NEUT % 73.8 % (42.8-82.8); PLATELET COUNT 288 10^3/uL (134-434); RBC 3.63 M/mm3 (4.00-5.60); RDW 12.7 % (11.9-15.9); WHITE BLOOD COUNT 6.6 K/mm3 (4.0-10.0)
[2021-08-03 15:34] LABS: SODIUM 139 mmol/L (136-145)
[2021-08-03 15:36] LABS: ALBUMIN 3.5 g/dl (3.4-5.0); BLOOD UREA NITROGEN 15.2 mg/dL (7-18); CALCIUM 8.9 mg/dL (8.5-10.1); GLUCOSE,RANDOM 98 mg/dL (74-106)
[2021-08-03 15:37] LABS: LIPASE 49 U/L (73-393)
[2021-08-03 15:39] LABS: SGOT/AST 26 U/L (15-37); SGPT/ALT 32 U/L (13-61)
[2021-08-03 15:40] LABS: CREATININE 0.7 mg/dL (0.55-1.3)
[2021-08-03 15:41] LABS: BILIRUBIN,TOTAL 0.3 mg/dL (0.2-1); TOT PROT 6.8 g/dl (6.4-8.2)
[2021-08-03 15:42] LABS: ALK PHOS 85 U/L (45-117)
[2021-08-03 15:59] LABS: ANION GAP 3 MMOL/L (8-16); CHLORIDE 105 mmol/L (98-107); CO2 31 mmol/L (21-32)
[2021-08-03 18:10] LABS: PH,URINE 7.5 (5.0-8.0); URINE APPEARANCE CLEAR; URINE BILIRUBIN NEGATIVE (NEGATIVE); URINE COLOR YELLOW; URINE GLUCOSE (UA) NEGATIVE (NEGATIVE); URINE KETONE NEGATIVE (NEGATIVE); URINE LEUK ESTERASE NEGATIVE (NEGATIVE); URINE NITRITE NEGATIVE (NEGATIVE); URINE PROTEIN NEGATIVE (NEGATIVE)
[2021-08-03] MEDS ORDERED: ONDANSETRON 4 MG/2 ML VIAL IVPUSH ONE (18:12)
[2021-08-03] MEDS ORDERED: ONDANSETRON 4 MG/2 ML VIAL ONE (18:18)
== END 2021-08-03 22:22 | disposition home or self-care (01) ==
LOC: JER 13:42
PROC: 3E033GC Introduction of Other Therapeutic Substance into Peripheral Vein, Percutaneous Approach (ICD-10-PCS; principal; 2021-08-03)
DX: R10.30 Lower abdominal pain, unspecified (principal); R11.2 Nausea with vomiting, unspecified; K74.60 Unspecified cirrhosis of liver
CPT/HCPCS: 36415; 74177-TC; 80053; 81003; 82550; 82553; 83690; 84484; 85025; 87086; 93005; 93010; 99285-25; J0131; Q9967

== ENCOUNTER 2021-08-03 22:28 | Inpatient (IN) | payer OTHER ==
[2021-08-03 23:15] VITALS: BMI 23.5
[2021-08-03] MEDS ORDERED: BISMUTH SUBSALICYLATE 524 MG/30 ML PO PRN (23:25)
[2021-08-03] MEDS ORDERED: NICOTINE POLACRILEX 2 MG GUM BUC PRN (23:25)
[2021-08-03] MEDS ORDERED: MAGNESIUM HYDROX 2400MG/30ML ORAL SUSPENSION 30 ML CUP PO PRN (23:25)
[2021-08-03] MEDS ORDERED: ACETAMINOPHEN 325 MG TABLET (FP) PO PRN (23:25)
[2021-08-03] MEDS ORDERED: MAG HYDROX/AL HYDROX/SIMETH 30 ML UNIT-DOSE CUP PO PRN (23:25)
[2021-08-03] MEDS ORDERED: MENTHOL/PHENOL 1 EACH UD MM PRN (23:25)
[2021-08-03] MEDS ORDERED: MAGNESIUM CITRATE 300 ML BOTTLE PO PRN (23:25)
[2021-08-03] MEDS ORDERED: methaDONE HCL 10 MG TABLET (FOR DETOX USE ONLY) PO ONE (23:54)
[2021-08-04] MEDS: METHOCARBAMOL 500 MG TABLET PO PRN ×3 (03:02→17:35)
[2021-08-04] MEDS ORDERED: methaDONE HCL 10 MG TABLET (FOR DETOX USE ONLY) PO ONE ×2 (03:03→10:00)
[2021-08-04] MEDS: cloNIDine HCL 0.1 MG TABLET PO PRN ×2 (03:04→22:13)
[2021-08-04] MEDS: ACETAMINOPHEN 325 MG TABLET (FP) PO PRN ×2 (07:24→19:21)
[2021-08-04] MEDS ORDERED: HYDROCHLOROTHIAZIDE 12.5 MG CAPSULE (FP) PO SCH (10:00)
[2021-08-04] MEDS ORDERED: ASPIRIN 81 MG CHEWABLE TABLETS PO SCH (10:00)
[2021-08-04] MEDS ORDERED: PRENATAL VITAMINS W/ FOLIC ACID TABLET (FP) PO SCH (10:00)
[2021-08-04] MEDS ORDERED: CHOLECALCIFEROL (VIT D3) 1,000 UNIT (25 MCG) TABLET PO SCH (10:00)
[2021-08-04 10:15] LABS: HEMOGLOBIN 12.7 GM/dL (11.7-16.9); MCH 33.3 pg (25.7-33.7); MCHC 34.2 g/dl (32.0-35.9); MEAN CELL VOLUME 97.4 fl (80-96); MEAN PLT VOLUME 8.2 fl (7.5-11.1); PLATELET COUNT 293 10^3/uL (134-434); RDW 12.8 % (11.9-15.9); WHITE BLOOD COUNT 7.5 K/mm3 (4.0-10.0)
[2021-08-04 10:37] LABS: ALBUMIN 3.6 g/dl (3.4-5.0); BLOOD UREA NITROGEN 12.5 mg/dL (7-18)
[2021-08-04 10:40] LABS: CREATININE 0.6 mg/dL (0.55-1.3)
[2021-08-04 10:41] LABS: BILIRUBIN,TOTAL 0.5 mg/dL (0.2-1)
[2021-08-04] MEDS: IBUPROFEN 400 MG TABLET (FP) PO PRN ×2 (14:31→20:40)
[2021-08-04] MEDS ORDERED: THIAMINE HCL 100 MG TABLET (FP) PO SCH (22:00)
[2021-08-04] MEDS ORDERED: MELATONIN 5 MG TABLETS PO SCH (22:00)
[2021-08-05] MEDS: ACETAMINOPHEN 325 MG TABLET (FP) PO PRN ×2 (01:37→06:47)
[2021-08-05] MEDS: METHOCARBAMOL 500 MG TABLET PO PRN ×2 (01:37→06:47)
[2021-08-05] MEDS: IBUPROFEN 400 MG TABLET (FP) PO PRN (05:19)
[2021-08-05] MEDS: cloNIDine HCL 0.1 MG TABLET PO PRN (05:19)
[2021-08-05 06:04] VITALS: BP 145/73; PULSE 65; TEMP 97.7
[2021-08-05] MEDS ORDERED: methaDONE HCL 10 MG TABLET (FOR DETOX USE ONLY) PO ONE (10:00)
[2021-08-06] MEDS ORDERED: methaDONE HCL 10 MG TABLET (FOR DETOX USE ONLY) PO ONE ×2 (10:00)
[2021-08-07] MEDS ORDERED: methaDONE HCL 10 MG TABLET (FOR DETOX USE ONLY) PO ONE (10:00)
[2021-08-08] MEDS ORDERED: methaDONE HCL 10 MG TABLET (FOR DETOX USE ONLY) PO ONE (10:00)
== END 2021-08-05 09:00 | disposition left against medical advice (07) | DRG 770 ==
LOC: YASAS 22:28 → Y3N 23:55
PROVIDERS: ADMIT Allergy & Immunology; ATTEND Allergy & Immunology
PROC: HZ2ZZZZ Detoxification Services for Substance Abuse Treatment (ICD-10-PCS; principal; 2021-08-03)
DX: F11.23 Opioid dependence with withdrawal (principal); F12.20 Cannabis dependence, uncomplicated; F17.210 Nicotine dependence, cigarettes, uncomplicated; I10 Essential (primary) hypertension; R01.1 Cardiac murmur, unspecified; Z86.19 Personal history of other infectious and parasitic diseases; Z91.013 Allergy to seafood
CPT/HCPCS: 36415; 80053; 85027; 86780; C9803; J0735; U0003; U0005

== ENCOUNTER 2022-03-20 22:52 | Observation (INO) | payer OTHER ==
[2022-03-20 23:03] VITALS: TEMP 97.8; BMI 20.3
[2022-03-21] MEDS ORDERED: HALOPERIDOL LACTATE 5 MG/ML ONE (03:06)
[2022-03-21] MEDS ORDERED: LORazepam 2 MG/ML SDV VIAL IVPUSH ONE ×2 (03:30)
[2022-03-21 04:12] LABS: BASO % 0.7 % (0-2.0); EOS % 0.1 % (0-4.5); HEMATOCRIT 40.2 % (35.4-49); HEMOGLOBIN 13.7 GM/dL (11.7-16.9); LYMPH % 17.2 % (8-40); MCH 33.1 pg (25.7-33.7); MEAN CELL VOLUME 97.3 fl (80-96); MEAN PLT VOLUME 8.4 fl (7.5-11.1); MONO % 3.9 % (3.8-10.2); NEUT % 78.1 % (42.8-82.8); PLATELET COUNT 285 10^3/uL (134-434); RBC 4.14 M/mm3 (4.00-5.60); RDW 12.3 % (11.9-15.9); WHITE BLOOD COUNT 7.8 K/mm3 (4.0-10.0)
[2022-03-21 04:16] LABS: EPI CELLS 6 /uL (0-25.1); HYALINE CASTS 0 /uL (0-3.1); URINE APPEARANCE CLEAR; URINE BACTERIA 2 /uL (0-1359); URINE BILIRUBIN NEGATIVE (NEGATIVE); URINE COLOR YELLOW; URINE GLUCOSE (UA) NEGATIVE (NEGATIVE); URINE KETONE 2+ (NEGATIVE); URINE LEUK ESTERASE NEGATIVE (NEGATIVE); URINE NITRITE NEGATIVE (NEGATIVE); URINE PROTEIN NEGATIVE (NEGATIVE); URINE RBC 51 /uL (0-23.9); URINE WBC 3 /uL (0-25.8)
[2022-03-21 04:20] LABS: COCAINE, UR NEGATIVE (NEGATIVE); OPIATES, URI NEGATIVE (NEGATIVE); URINE AMPHETAMINES NEGATIVE (NEGATIVE); URINE BARBITURATES NEGATIVE (NEGATIVE)
[2022-03-21 04:21] LABS: METHADONE, UR NEGATIVE (NEGATIVE); PHENCYCLIDINE,URINE NEGATIVE (NEGATIVE); URINE BENZODIAZEPINES NEGATIVE (NEGATIVE)
[2022-03-21 04:31] LABS: CHLORIDE 101 mmol/L (98-107); SODIUM 136 mmol/L (136-145)
[2022-03-21 04:33] LABS: ALBUMIN 4.4 g/dl (3.4-5.0); ANION GAP 7 MMOL/L (8-16); CALCIUM 9.1 mg/dL (8.5-10.1); CO2 28 mmol/L (21-32); GLUCOSE,RANDOM 130 mg/dL (74-106)
[2022-03-21 04:34] LABS: BLOOD UREA NITROGEN 20.4 mg/dL (7-18)
[2022-03-21 04:36] LABS: CREATININE 0.6 mg/dL (0.55-1.3); SGOT/AST 26 U/L (15-37)
[2022-03-21 04:37] LABS: SGPT/ALT 24 U/L (13-61)
[2022-03-21 04:38] LABS: BILIRUBIN,TOTAL 0.6 mg/dL (0.2-1); TOT PROT 7.9 g/dl (6.4-8.2)
[2022-03-21 04:39] LABS: ALK PHOS 76 U/L (45-117)
[2022-03-21 04:58] VITALS: BP 120/76; PULSE 88
[2022-03-21 05:13] LABS: INR 1.15 (0.83-1.09); PROTHROMBIN TIME (PATIENT) 13.3 SEC (9.7-13.0)
[2022-03-21 05:16] LABS: ACTIVATED PTT 26.1 SECONDS (25.2-36.5)
== END 2022-03-21 07:40 | disposition left against medical advice (07) ==
LOC: JER 22:52 → JERBED 03-21 05:51
PROVIDERS: ADMIT Hospitalist; ATTEND Hospitalist
PROC: 3E033NZ Introduction of Analgesics, Hypnotics, Sedatives into Peripheral Vein, Percutaneous Approach (ICD-10-PCS; principal; 2022-03-21)
DX: R41.82 Altered mental status, unspecified (principal); I10 Essential (primary) hypertension; F11.20 Opioid dependence, uncomplicated; K75.9 Inflammatory liver disease, unspecified; Z21 Asymptomatic human immunodeficiency virus [HIV] infection status; F17.210 Nicotine dependence, cigarettes, uncomplicated; Z91.013 Allergy to seafood
CPT/HCPCS: 0241U-QW; 36415; 70450-TC; 71045-TC-FY; 80053; 80307; 81003; 82140; 82550; 83605; 84484; 85025; 85610; 85730; 86850; 86900; 86901; 87086; 93005; 93010; 96374; 99285-25; G0378

== ENCOUNTER 2023-01-23 10:56 | Emergency (ER) | payer OTHER ==
[2023-01-23 11:27] VITALS: BP 144/73; PULSE 72; RESP 18; TEMP 97.7; BMI 24.9
[2023-01-23 12:00] LABS: BASO % 0.5 % (0-2.0); EOS % 1.3 % (0-4.5); HEMATOCRIT 36.4 % (35.4-49); HEMOGLOBIN 12.5 GM/dL (11.7-16.9); LYMPH % 11.1 % (8-40); MCH 32.7 pg (25.7-33.7); MCHC 34.3 g/dl (32.0-35.9); MEAN CELL VOLUME 95.3 fl (80-96); MEAN PLT VOLUME 7.9 fl (7.5-11.1); MONO % 5.6 % (3.8-10.2); NEUT % 81.5 % (42.8-82.8); PLATELET COUNT 342 10^3/uL (134-434); RBC 3.82 M/mm3 (4.00-5.60); RDW 12.8 % (11.9-15.9); WHITE BLOOD COUNT 7.7 K/mm3 (4.0-10.0)
[2023-01-23 12:21] LABS: POTASSIUM 4.1 mmol/L (3.5-5.1)
[2023-01-23 12:23] LABS: BLOOD UREA NITROGEN 13.8 mg/dL (7-18); CALCIUM 9.5 mg/dL (8.5-10.1)
[2023-01-23 12:24] LABS: ALBUMIN 3.6 g/dl (3.4-5.0); MAGNESIUM 1.9 mg/dL (1.8-2.4)
[2023-01-23 12:26] LABS: CREATININE 0.7 mg/dL (0.55-1.3)
[2023-01-23 12:28] LABS: BILIRUBIN,TOTAL 0.2 mg/dL (0.2-1); TOT PROT 7.4 g/dl (6.4-8.2)
[2023-01-23 14:01] LABS: VENOUS PCO2 42.4 mmHg (38-52); VENOUS PH 7.389 (7.310-7.410)
== END 2023-01-23 13:23 | disposition left against medical advice (07) ==
LOC: JER 10:56
DX: R55 Syncope and collapse (principal); R25.1 Tremor, unspecified; Z20.822 Contact with and (suspected) exposure to COVID-19
CPT/HCPCS: 36415; 70450-TC; 72125-TC; 80053; 82550; 82553; 82803; 83605; 83735; 84484; 85025; 93005; 93010; 99285-25; C9803-CS; U0003; U0005

== ENCOUNTER 2023-03-01 12:26 | Inpatient (IN) | payer OTHER ==
[2023-03-01] MEDS ORDERED: MIDAZOLAM HCL 2 MG/2 ML SINGLE DOSE VIAL ONE ×2 (12:42→13:00)
[2023-03-01] MEDS ORDERED: HALOPERIDOL LACTATE 5 MG/ML IM ONE (12:45)
[2023-03-01] MEDS ORDERED: KETAMINE HCL 200 MG/20 ML VIAL ONE ×2 (12:55→12:58)
[2023-03-01] MEDS ORDERED: KETAMINE HCL 200 MG/20 ML VIAL IVPUSH ONE ×2 (12:57→13:12)
[2023-03-01] MEDS ORDERED: MIDAZOLAM HCL 2 MG/2 ML SINGLE DOSE VIAL IM ONE ×2 (13:01→13:37)
[2023-03-01] MEDS ORDERED: HALOPERIDOL DECANOATE 100 MG/ML IM ONE ×2 (13:35→13:37)
[2023-03-01] MEDS ORDERED: LORazepam 2 MG/ML SDV VIAL IM ONE (13:36)
[2023-03-01 13:57] LABS: BASO % 0.9 % (0-2.0); EOS % 0.4 % (0-4.5); HEMATOCRIT 39.9 % (35.4-49); HEMOGLOBIN 12.9 GM/dL (11.7-16.9); LYMPH % 9.7 % (8-40); MCH 30.6 pg (25.7-33.7); MCHC 32.4 g/dl (32.0-35.9); MEAN CELL VOLUME 94.6 fl (80-96); MONO % 5.2 % (3.8-10.2); NEUT % 83.8 % (42.8-82.8); PLATELET COUNT 305 10^3/uL (134-434); RBC 4.22 M/mm3 (4.00-5.60); RDW 12.6 % (11.9-15.9); WHITE BLOOD COUNT 9.6 K/mm3 (4.0-10.0)
[2023-03-01 14:18] LABS: CHLORIDE 104 mmol/L (98-107); POTASSIUM 4.7 mmol/L (3.5-5.1); SODIUM 139 mmol/L (136-145)
[2023-03-01 14:21] LABS: ALBUMIN 3.9 g/dl (3.4-5.0); ANION GAP 9 MMOL/L (8-16); BLOOD UREA NITROGEN 15.8 mg/dL (7-18); CALCIUM 9.3 mg/dL (8.5-10.1); CO2 26 mmol/L (21-32); GLUCOSE,RANDOM 110 mg/dL (74-106); MAGNESIUM 1.9 mg/dL (1.8-2.4)
[2023-03-01 14:24] LABS: CREATININE 0.9 mg/dL (0.55-1.3); PHOSPHOROUS 4.2 mg/dL (2.5-4.9); SGOT/AST 48 U/L (15-37); SGPT/ALT 25 U/L (13-61)
[2023-03-01 14:25] LABS: TOT PROT 7.6 g/dl (6.4-8.2)
[2023-03-01 14:26] LABS: BILIRUBIN,TOTAL 0.5 mg/dL (0.2-1)
[2023-03-01 14:27] LABS: VENOUS BASE EXCESS 2.3 mmol/L (-2-2); VENOUS PH 7.391 (7.310-7.410)
[2023-03-01 14:27] LABS: ALK PHOS 117 U/L (45-117)
[2023-03-01] MEDS ORDERED: LORazepam 2 MG/ML SDV VIAL IVPUSH ONE ×3 (15:36→23:22)
[2023-03-01] MEDS ORDERED: levETIRAcetam 500 MG/5 ML INJECTION VIAL IVPB ONE ×2 (16:15→16:21)
[2023-03-01] MEDS: LACTATED RINGERS SOLUTION 1,000 ML/1,000 ML INFUS.BAG IV SCH ×2 (20:32→23:30)
[2023-03-01] MEDS: levETIRAcetam 500 MG/5 ML INJECTION VIAL IVPB SCH (23:30)
[2023-03-02] MEDS ORDERED: LORazepam 2 MG/ML SDV VIAL IVPUSH ONE ×8 (04:35→20:37)
[2023-03-02] MEDS ORDERED: HALOPERIDOL LACTATE 5 MG/ML IM ONE (05:30)
[2023-03-02] MEDS ORDERED: PHENobarbital SODIUM 65 MG/1 ML VIAL IVPUSH ONE ×3 (06:35→23:15)
[2023-03-02] MEDS: ENOXAPARIN NA (PORCINE) 40 MG/0.4 ML DISP.SYRIN SQ SCH (10:23)
[2023-03-02] MEDS: levETIRAcetam 500 MG/5 ML INJECTION VIAL IVPB SCH ×2 (10:23→21:51)
[2023-03-02] MEDS ORDERED: PHENobarbital SODIUM 65 MG/1 ML VIAL IVPUSH SCH (11:00)
[2023-03-02 11:48] LABS: EPI CELLS 8 /uL (0-25.1); HYALINE CASTS 0 /uL (0-3.1); PH,URINE 6.5 (5.0-8.0); URINE APPEARANCE CLEAR; URINE BACTERIA 34 /uL (0-1359); URINE BILIRUBIN NEGATIVE (NEGATIVE); URINE COLOR YELLOW; URINE GLUCOSE (UA) NEGATIVE (NEGATIVE); URINE KETONE 2+ (NEGATIVE); URINE LEUK ESTERASE NEGATIVE (NEGATIVE); URINE NITRITE NEGATIVE (NEGATIVE); URINE PROTEIN NEGATIVE (NEGATIVE); URINE RBC 123 /uL (0-23.9); URINE WBC 5 /uL (0-25.8)
[2023-03-02 11:53] LABS: COCAINE, UR NEGATIVE (NEGATIVE); METHADONE, UR NEGATIVE (NEGATIVE); PHENCYCLIDINE,URINE NEGATIVE (NEGATIVE); URINE AMPHETAMINES NEGATIVE (NEGATIVE)
[2023-03-02 11:59] LABS: OPIATES, URI POSITIVE (NEGATIVE); URINE BARBITURATES POSITIVE (NEGATIVE); URINE BENZODIAZEPINES POSITIVE (NEGATIVE)
[2023-03-02 13:48] LABS: POTASSIUM 3.6 mmol/L (3.5-5.1)
[2023-03-02 13:51] LABS: ALBUMIN 3.6 g/dl (3.4-5.0); CALCIUM 9.2 mg/dL (8.5-10.1)
[2023-03-02 13:55] LABS: CREATININE 0.7 mg/dL (0.55-1.3)
[2023-03-02 13:56] LABS: BILIRUBIN,TOTAL 0.8 mg/dL (0.2-1)
[2023-03-02] MEDS: LACTATED RINGERS SOLUTION 1,000 ML/1,000 ML INFUS.BAG IV SCH (17:25)
[2023-03-02] MEDS ORDERED: LACTATED RINGERS SOLUTION 1,000 ML/1,000 ML INFUS.BAG IV STA (17:44)
[2023-03-02] MEDS ORDERED: LORazepam 2 MG/ML SDV VIAL IVPUSH SCH (21:00)
[2023-03-02] MEDS: LORazepam 2 MG/ML SDV VIAL IVPUSH SCH ×2 (22:42)
[2023-03-02] MEDS: THIAMINE HCL 200 MG/2 ML VIAL IVPB SCH (22:43)
[2023-03-03] MEDS ORDERED: LORazepam 2 MG/ML SDV VIAL IVPUSH PRN (00:50)
[2023-03-03] MEDS: THIAMINE HCL 200 MG/2 ML VIAL IVPB SCH ×3 (05:18→21:57)
[2023-03-03] MEDS ORDERED: PHENobarbital SODIUM 65 MG/1 ML VIAL IVPUSH ONE ×4 (06:00→17:35)
[2023-03-03] MEDS: LORazepam 2 MG/ML SDV VIAL IVPUSH PRN ×3 (06:33→20:57)
[2023-03-03] MEDS: levETIRAcetam 500 MG/5 ML INJECTION VIAL IVPB SCH ×2 (10:00→21:56)
[2023-03-03] MEDS: ENOXAPARIN NA (PORCINE) 40 MG/0.4 ML DISP.SYRIN SQ SCH (10:00)
[2023-03-03] MEDS: LACTATED RINGERS SOLUTION 1,000 ML/1,000 ML INFUS.BAG IV SCH (14:07)
[2023-03-03] MEDS ORDERED: LORazepam 2 MG/ML SDV VIAL IVPUSH ONE ×2 (15:58→18:01)
[2023-03-03] MEDS ORDERED: HALOPERIDOL LACTATE 5 MG/ML IM PRN (17:25)
[2023-03-03] MEDS ORDERED: HALOPERIDOL LACTATE 5 MG/ML IM ONE ×3 (17:27→18:00)
[2023-03-03] MEDS: DEXMEDETOMIDINE PREMIX 400 MCG/100 ML BAG IVPB SCH (19:47)
[2023-03-03] MEDS: CHLORHEXIDINE GLUCONATE 4% CLEANSER FOR DECOLONIZATION TP SCH (21:56)
[2023-03-03] MEDS: MUPIROCIN 2% TOPICAL OINTMENT FOR DECOLONIZATION NS SCH (21:56)
[2023-03-03] MEDS ORDERED: PHENobarbital SODIUM 65 MG/1 ML VIAL IVPUSH SCH ×2 (22:00)
[2023-03-04] MEDS: DEXMEDETOMIDINE PREMIX 400 MCG/100 ML BAG IVPB SCH ×2 (05:26→20:00)
[2023-03-04] MEDS: LACTATED RINGERS SOLUTION 1,000 ML/1,000 ML INFUS.BAG IV SCH (05:30)
[2023-03-04] MEDS: THIAMINE HCL 200 MG/2 ML VIAL IVPB SCH (06:23)
[2023-03-04 07:33] LABS: POTASSIUM 3.5 mmol/L (3.5-5.1)
[2023-03-04 07:36] LABS: CALCIUM 8.3 mg/dL (8.5-10.1)
[2023-03-04 07:37] LABS: ALBUMIN 3.2 g/dl (3.4-5.0); MAGNESIUM 1.7 mg/dL (1.8-2.4)
[2023-03-04 07:39] LABS: CREATININE 0.6 mg/dL (0.55-1.3); PHOSPHOROUS 2.7 mg/dL (2.5-4.9)
[2023-03-04 07:41] LABS: BILIRUBIN,TOTAL 0.5 mg/dL (0.2-1); TOT PROT 6.2 g/dl (6.4-8.2)
[2023-03-04 07:54] LABS: BASO % 0.7 % (0-2.0); EOS % 1.3 % (0-4.5); HEMATOCRIT 35.3 % (35.4-49); HEMOGLOBIN 11.8 GM/dL (11.7-16.9); LYMPH % 16.9 % (8-40); MCH 31.4 pg (25.7-33.7); MCHC 33.3 g/dl (32.0-35.9); MEAN CELL VOLUME 94.4 fl (80-96); MEAN PLT VOLUME 9.2 fl (7.5-11.1); MONO % 6.9 % (3.8-10.2); NEUT % 74.2 % (42.8-82.8); PLATELET COUNT 250 10^3/uL (134-434); RBC 3.74 M/mm3 (4.00-5.60); RDW 12.5 % (11.9-15.9); WHITE BLOOD COUNT 7.2 K/mm3 (4.0-10.0)
[2023-03-04] MEDS ORDERED: LACTATED RINGERS SOLUTION 1,000 ML/1,000 ML INFUS.BAG IV SCH (08:12)
[2023-03-04] MEDS ORDERED: MAGNESIUM SULFATE IN WATER 2 GM/50 ML IVPB IVPB ONE (09:15)
[2023-03-04] MEDS: MUPIROCIN 2% TOPICAL OINTMENT FOR DECOLONIZATION NS SCH ×2 (09:17→21:42)
[2023-03-04] MEDS: levETIRAcetam 500 MG/5 ML INJECTION VIAL IVPB SCH ×2 (09:17→21:42)
[2023-03-04] MEDS: ENOXAPARIN NA (PORCINE) 40 MG/0.4 ML DISP.SYRIN SQ SCH (09:17)
[2023-03-04] MEDS: DEXTROSE 5%-0.45% SALINE 1,000 ML IV SCH ×2 (10:58→21:36)
[2023-03-04] MEDS: PHENobarbital SODIUM 65 MG/1 ML VIAL IVPUSH SCH ×2 (11:57→21:42)
[2023-03-04] MEDS ORDERED: THIAMINE HCL 200 MG/2 ML VIAL IVPB SCH (14:01)
[2023-03-04] MEDS: LORazepam 2 MG/ML SDV VIAL IVPUSH PRN (18:32)
[2023-03-04] MEDS: CHLORHEXIDINE GLUCONATE 4% CLEANSER FOR DECOLONIZATION TP SCH (21:42)
[2023-03-05] MEDS: DEXMEDETOMIDINE PREMIX 400 MCG/100 ML BAG IVPB SCH ×2 (02:10→21:38)
[2023-03-05 07:20] LABS: BASO % 0.5 % (0-2.0); EOS % 1.1 % (0-4.5); HEMATOCRIT 32.7 % (35.4-49); HEMOGLOBIN 11.3 GM/dL (11.7-16.9); LYMPH % 8.6 % (8-40); MCH 32.2 pg (25.7-33.7); MCHC 34.4 g/dl (32.0-35.9); MEAN CELL VOLUME 93.6 fl (80-96); MEAN PLT VOLUME 9.1 fl (7.5-11.1); MONO % 6.6 % (3.8-10.2); NEUT % 83.2 % (42.8-82.8); PLATELET COUNT 234 10^3/uL (134-434); RBC 3.49 M/mm3 (4.00-5.60); RDW 12.3 % (11.9-15.9); WHITE BLOOD COUNT 7.6 K/mm3 (4.0-10.0)
[2023-03-05 07:36] LABS: POTASSIUM 3.1 mmol/L (3.5-5.1)
[2023-03-05 07:47] LABS: ALBUMIN 2.8 g/dl (3.4-5.0); BLOOD UREA NITROGEN 9.4 mg/dL (7-18); CALCIUM 7.8 mg/dL (8.5-10.1)
[2023-03-05 07:50] LABS: PHOSPHOROUS 2.6 mg/dL (2.5-4.9)
[2023-03-05 07:51] LABS: CREATININE 0.6 mg/dL (0.55-1.3); MAGNESIUM 1.7 mg/dL (1.8-2.4)
[2023-03-05 07:52] LABS: BILIRUBIN,TOTAL 0.7 mg/dL (0.2-1); TOT PROT 5.7 g/dl (6.4-8.2)
[2023-03-05] MEDS ORDERED: MAGNESIUM SULF 50% (8.12 MEQ/2 ML-1 GM VIAL) IVPB ONE (08:05)
[2023-03-05] MEDS: KCL 10 MEQ IVPB 10 MEQ/100 ML INFUS.BAG IVPB SCH ×3 (09:03→11:57)
[2023-03-05] MEDS: ENOXAPARIN NA (PORCINE) 40 MG/0.4 ML DISP.SYRIN SQ SCH (09:56)
[2023-03-05] MEDS: levETIRAcetam 500 MG/5 ML INJECTION VIAL IVPB SCH ×2 (09:56→21:42)
[2023-03-05] MEDS: MUPIROCIN 2% TOPICAL OINTMENT FOR DECOLONIZATION NS SCH ×2 (09:56→21:42)
[2023-03-05] MEDS: THIAMINE HCL 200 MG/2 ML VIAL IVPB SCH (09:59)
[2023-03-05] MEDS ORDERED: THIAMINE HCL 200 MG/2 ML VIAL IVPB SCH ×2 (10:00)
[2023-03-05] MEDS: PHENobarbital SODIUM 65 MG/1 ML VIAL IVPUSH SCH ×2 (10:09→21:42)
[2023-03-05] MEDS: DEXTROSE 5%-LACTATED RINGERS 1,000 ML IV SCH ×2 (11:57→21:40)
[2023-03-05] MEDS: CHLORHEXIDINE GLUCONATE 4% CLEANSER FOR DECOLONIZATION TP SCH (21:42)
[2023-03-06] MEDS: DEXMEDETOMIDINE PREMIX 400 MCG/100 ML BAG IVPB SCH ×2 (01:26→07:52)
[2023-03-06] MEDS: DEXTROSE 5%-LACTATED RINGERS 1,000 ML IV SCH ×3 (05:34→17:38)
[2023-03-06 07:49] LABS: BASO % 0.5 % (0-2.0); EOS % 0.9 % (0-4.5); HEMATOCRIT 35.7 % (35.4-49); LYMPH % 9.6 % (8-40); MCH 31.5 pg (25.7-33.7); MCHC 33.6 g/dl (32.0-35.9); MEAN CELL VOLUME 93.7 fl (80-96); MEAN PLT VOLUME 9.6 fl (7.5-11.1); MONO % 7.9 % (3.8-10.2); NEUT % 81.1 % (42.8-82.8); PLATELET COUNT 255 10^3/uL (134-434); RBC 3.81 M/mm3 (4.00-5.60); RDW 12.5 % (11.9-15.9); WHITE BLOOD COUNT 8.1 K/mm3 (4.0-10.0)
[2023-03-06 07:53] LABS: POTASSIUM 3.2 mmol/L (3.5-5.1)
[2023-03-06 07:59] LABS: BLOOD UREA NITROGEN 4.6 mg/dL (7-18); CALCIUM 8.4 mg/dL (8.5-10.1); MAGNESIUM 1.8 mg/dL (1.8-2.4)
[2023-03-06 08:01] LABS: PHOSPHOROUS 2.3 mg/dL (2.5-4.9)
[2023-03-06 08:02] LABS: CREATININE 0.6 mg/dL (0.55-1.3); TOT PROT 6.4 g/dl (6.4-8.2)
[2023-03-06 08:03] LABS: BILIRUBIN,TOTAL 0.6 mg/dL (0.2-1)
[2023-03-06] MEDS: KCL 10 MEQ IVPB 10 MEQ/100 ML INFUS.BAG IVPB SCH ×3 (08:47→10:46)
[2023-03-06] MEDS ORDERED: POTASSIUM PHOSPHATE IVPB ONE (09:30)
[2023-03-06] MEDS ORDERED: SODIUM CHLORIDE IVPB ONE (09:30)
[2023-03-06] MEDS: MUPIROCIN 2% TOPICAL OINTMENT FOR DECOLONIZATION NS SCH ×2 (09:46→21:31)
[2023-03-06] MEDS: ENOXAPARIN NA (PORCINE) 40 MG/0.4 ML DISP.SYRIN SQ SCH (09:56)
[2023-03-06] MEDS: levETIRAcetam 500 MG/5 ML INJECTION VIAL IVPB SCH ×2 (09:56→21:31)
[2023-03-06] MEDS: PHENobarbital SODIUM 65 MG/1 ML VIAL IVPUSH SCH (09:57)
[2023-03-06] MEDS: THIAMINE HCL 200 MG/2 ML VIAL IVPB SCH (10:46)
[2023-03-06 13:13] LABS: POTASSIUM 4.4 mmol/L (3.5-5.1)
[2023-03-06 13:14] LABS: CALCIUM 8.5 mg/dL (8.5-10.1)
[2023-03-06 13:15] LABS: BLOOD UREA NITROGEN 3.2 mg/dL (7-18)
[2023-03-06] MEDS ORDERED: LACTATED RINGERS SOLUTION 1,000 ML/1,000 ML INFUS.BAG IV SCH (13:15)
[2023-03-06 13:19] LABS: CREATININE 0.4 mg/dL (0.55-1.3)
[2023-03-06] MEDS ORDERED: hydrOXYzine HCL 10 MG/5 ML LIQUID BULK BOTTLE PO PRN (13:30)
[2023-03-06] MEDS ORDERED: HYDROCHLOROTHIAZIDE 12.5 MG CAPSULE (FP) PO SCH (14:03)
[2023-03-06] MEDS: LORazepam 2 MG/ML SDV VIAL IVPUSH PRN ×3 (14:23→23:00)
[2023-03-06] MEDS: CHLORHEXIDINE GLUCONATE 4% CLEANSER FOR DECOLONIZATION TP SCH (21:31)
[2023-03-07] MEDS: LORazepam 2 MG/ML SDV VIAL IVPUSH PRN ×4 (03:06→20:05)
[2023-03-07] MEDS: DEXTROSE 5%-LACTATED RINGERS 1,000 ML IV SCH (03:09)
[2023-03-07 07:13] LABS: BASO % 0.3 % (0-2.0); EOS % 0.1 % (0-4.5); HEMATOCRIT 34.6 % (35.4-49); HEMOGLOBIN 11.9 GM/dL (11.7-16.9); LYMPH % 10.8 % (8-40); MCH 31.7 pg (25.7-33.7); MCHC 34.3 g/dl (32.0-35.9); MEAN CELL VOLUME 92.4 fl (80-96); MEAN PLT VOLUME 9.2 fl (7.5-11.1); MONO % 8.5 % (3.8-10.2); NEUT % 80.3 % (42.8-82.8); PLATELET COUNT 278 10^3/uL (134-434); RBC 3.74 M/mm3 (4.00-5.60); RDW 12.6 % (11.9-15.9)
[2023-03-07 07:27] LABS: CHLORIDE 106 mmol/L (98-107); SODIUM 144 mmol/L (136-145)
[2023-03-07 07:31] LABS: CALCIUM 8.8 mg/dL (8.5-10.1)
[2023-03-07 07:32] LABS: ALBUMIN 3.2 g/dl (3.4-5.0); CO2 29 mmol/L (21-32); GLUCOSE,RANDOM 124 mg/dL (74-106); MAGNESIUM 1.6 mg/dL (1.8-2.4)
[2023-03-07 07:34] LABS: SGPT/ALT 34 U/L (13-61)
[2023-03-07 07:35] LABS: CREATININE 0.5 mg/dL (0.55-1.3); PHOSPHOROUS 3.6 mg/dL (2.5-4.9); SGOT/AST 41 U/L (15-37)
[2023-03-07 07:36] LABS: BILIRUBIN,TOTAL 0.6 mg/dL (0.2-1); TOT PROT 6.4 g/dl (6.4-8.2)
[2023-03-07 07:38] LABS: ALK PHOS 84 U/L (45-117)
[2023-03-07 07:44] LABS: ANION GAP 9 MMOL/L (8-16); BLOOD UREA NITROGEN 2.7 mg/dL (7-18); POTASSIUM 2.9 mmol/L (3.5-5.1)
[2023-03-07] MEDS: ENOXAPARIN NA (PORCINE) 40 MG/0.4 ML DISP.SYRIN SQ SCH (09:56)
[2023-03-07] MEDS: THIAMINE HCL 200 MG/2 ML VIAL IVPB SCH (09:57)
[2023-03-07] MEDS: levETIRAcetam 500 MG/5 ML INJECTION VIAL IVPB SCH ×2 (09:57→21:20)
[2023-03-07] MEDS ORDERED: HYDROCHLOROTHIAZIDE 12.5 MG CAPSULE (FP) PO SCH (10:00)
[2023-03-07] MEDS: MUPIROCIN 2% TOPICAL OINTMENT FOR DECOLONIZATION NS SCH ×2 (10:25→21:20)
[2023-03-07] MEDS: KCL 10 MEQ IVPB 10 MEQ/100 ML INFUS.BAG IVPB SCH ×5 (10:25→15:46)
[2023-03-07] MEDS ORDERED: BUPRENORPHINE/NALOXONE 12 MG-3 MG SL FILM PACKET SL SCH (11:15)
[2023-03-07] MEDS ORDERED: MAGNESIUM 2GM/50ML STERILE WATER IVPB IVPB ONE (13:15)
[2023-03-07] MEDS ORDERED: POTASSIUM CHLORIDE ORAL LIQUID 20 MEQ/15 ML PO ONE (13:15)
[2023-03-07] MEDS: BUPRENORPHINE/NALOXONE 1 EACH, BUPRENORPHINE/NALOXONE 2 EACH SL SCH (13:17)
[2023-03-07] MEDS ORDERED: DEXTROSE 5%-LACTATED RINGERS 1,000 ML IV SCH (13:18)
[2023-03-07] MEDS ORDERED: HALOPERIDOL LACTATE 5 MG/ML IM ONE (14:35)
[2023-03-07] MEDS: CHLORHEXIDINE GLUCONATE 4% CLEANSER FOR DECOLONIZATION TP SCH (21:20)
[2023-03-08] MEDS: LORazepam 2 MG/ML SDV VIAL IVPUSH PRN (01:05)
[2023-03-08 06:59] LABS: BASO % 0.7 % (0-2.0); EOS % 1.6 % (0-4.5); HEMATOCRIT 35.1 % (35.4-49); LYMPH % 15.1 % (8-40); MCH 31.8 pg (25.7-33.7); MCHC 34.2 g/dl (32.0-35.9); MEAN CELL VOLUME 93.2 fl (80-96); MEAN PLT VOLUME 8.7 fl (7.5-11.1); MONO % 8.6 % (3.8-10.2); PLATELET COUNT 310 10^3/uL (134-434); RBC 3.77 M/mm3 (4.00-5.60); RDW 12.5 % (11.9-15.9); WHITE BLOOD COUNT 6.6 K/mm3 (4.0-10.0)
[2023-03-08 07:22] LABS: CHLORIDE 105 mmol/L (98-107); POTASSIUM 3.7 mmol/L (3.5-5.1); SODIUM 144 mmol/L (136-145)
[2023-03-08 07:29] LABS: ALBUMIN 3.1 g/dl (3.4-5.0); ANION GAP 9 MMOL/L (8-16); CALCIUM 8.8 mg/dL (8.5-10.1); CO2 29 mmol/L (21-32); GLUCOSE,RANDOM 110 mg/dL (74-106); MAGNESIUM 1.9 mg/dL (1.8-2.4)
[2023-03-08 07:32] LABS: CREATININE 0.6 mg/dL (0.55-1.3); PHOSPHOROUS 3.8 mg/dL (2.5-4.9); SGOT/AST 36 U/L (15-37); SGPT/ALT 33 U/L (13-61)
[2023-03-08 07:34] LABS: BILIRUBIN,TOTAL 0.6 mg/dL (0.2-1); TOT PROT 6.5 g/dl (6.4-8.2)
[2023-03-08 07:35] LABS: ALK PHOS 88 U/L (45-117)
[2023-03-08 07:36] LABS: BLOOD UREA NITROGEN 2.8 mg/dL (7-18)
[2023-03-08] MEDS: levETIRAcetam 500 MG/5 ML INJECTION VIAL IVPB SCH ×2 (09:52→22:29)
[2023-03-08] MEDS: MUPIROCIN 2% TOPICAL OINTMENT FOR DECOLONIZATION NS SCH (09:53)
[2023-03-08] MEDS: ENOXAPARIN NA (PORCINE) 40 MG/0.4 ML DISP.SYRIN SQ SCH (09:53)
[2023-03-08] MEDS: BUPRENORPHINE/NALOXONE 1 EACH, BUPRENORPHINE/NALOXONE 2 EACH SL SCH (09:53)
[2023-03-08] MEDS: THIAMINE HCL 200 MG/2 ML VIAL IVPB SCH (09:54)
[2023-03-08] MEDS ORDERED: BUPRENORPHINE/NALOXONE 1 EACH, BUPRENORPHINE/NALOXONE 2 EACH SL SCH (10:00)
[2023-03-08] MEDS ORDERED: FLUCONAZOLE 100 MG TABLET (UD) PO ONE (12:30)
[2023-03-09] MEDS: hydrOXYzine HCL 10 MG/5 ML LIQUID BULK BOTTLE PO PRN ×2 (07:33→18:20)
[2023-03-09] MEDS ORDERED: LORazepam 2 MG/ML SDV VIAL IVPUSH ONE (08:30)
[2023-03-09 09:26] LABS: BASO % 0.5 % (0-2.0); EOS % 1.1 % (0-4.5); HEMATOCRIT 34.3 % (35.4-49); HEMOGLOBIN 11.8 GM/dL (11.7-16.9); LYMPH % 12.1 % (8-40); MCH 31.4 pg (25.7-33.7); MCHC 34.4 g/dl (32.0-35.9); MEAN CELL VOLUME 91.3 fl (80-96); MEAN PLT VOLUME 8.3 fl (7.5-11.1); MONO % 7.8 % (3.8-10.2); NEUT % 78.5 % (42.8-82.8); PLATELET COUNT 349 10^3/uL (134-434); RBC 3.75 M/mm3 (4.00-5.60); RDW 12.3 % (11.9-15.9); WHITE BLOOD COUNT 8.1 K/mm3 (4.0-10.0)
[2023-03-09 09:39] LABS: POTASSIUM 3.9 mmol/L (3.5-5.1)
[2023-03-09 09:45] LABS: ALBUMIN 3.5 g/dl (3.4-5.0); BLOOD UREA NITROGEN 11.6 mg/dL (7-18)
[2023-03-09 09:46] LABS: CALCIUM 9.4 mg/dL (8.5-10.1)
[2023-03-09 09:47] LABS: CREATININE 0.6 mg/dL (0.55-1.3)
[2023-03-09 09:49] LABS: BILIRUBIN,TOTAL 0.4 mg/dL (0.2-1)
[2023-03-09] MEDS ORDERED: THIAMINE HCL 200 MG/2 ML VIAL IVPB SCH (10:00)
[2023-03-09] MEDS ORDERED: levETIRAcetam 500 MG/5 ML INJECTION VIAL IVPB SCH (10:00)
[2023-03-09] MEDS ORDERED: LORazepam 2 MG/ML SDV VIAL IM ONE (10:13)
[2023-03-09] MEDS: ENOXAPARIN NA (PORCINE) 40 MG/0.4 ML DISP.SYRIN SQ SCH (11:00)
[2023-03-09] MEDS ORDERED: chlordiazePOXIDE HCL 25 MG CAPSULE PO SCH (11:00)
[2023-03-09] MEDS: levETIRAcetam 500 MG TABLET (FP) PO SCH ×2 (11:01→22:11)
[2023-03-09] MEDS: BUPRENORPHINE/NALOXONE 1 EACH, BUPRENORPHINE/NALOXONE 2 EACH SL SCH (11:01)
[2023-03-09] MEDS: FLUCONAZOLE 100 MG TABLET (UD) PO SCH (11:01)
[2023-03-09] MEDS: CEPHALEXIN MONOHYDRATE 500 MG CAPSULE (UD) PO SCH ×2 (11:03→18:20)
[2023-03-09] MEDS: CHLORHEXIDINE GLUCONATE 4% CLEANSER FOR DECOLONIZATION TP SCH (12:26)
[2023-03-09] MEDS ORDERED: chlordiazePOXIDE HCL 10 MG CAPSULE PO SCH (14:00)
[2023-03-09 14:32] VITALS: BMI 25.9
[2023-03-09] MEDS: chlordiazePOXIDE HCL 10 MG CAPSULE PO SCH ×2 (16:08→22:11)
[2023-03-09] MEDS: OLANZapine 10 MG TABLET PO SCH (22:11)
[2023-03-10] MEDS: CHLORHEXIDINE GLUCONATE 4% CLEANSER FOR DECOLONIZATION TP SCH (01:28)
[2023-03-10] MEDS: CEPHALEXIN MONOHYDRATE 500 MG CAPSULE (UD) PO SCH ×4 (01:30→17:41)
[2023-03-10] MEDS ORDERED: LORazepam 2 MG/ML SDV VIAL IM ONE (03:55)
[2023-03-10] MEDS: chlordiazePOXIDE HCL 10 MG CAPSULE PO SCH ×4 (05:32→22:47)
[2023-03-10] MEDS: FLUCONAZOLE 100 MG TABLET (UD) PO SCH (09:15)
[2023-03-10] MEDS: MULTIVITAMINS (DAILY MVI) TABLET (FP) PO SCH (09:16)
[2023-03-10] MEDS: THIAMINE HCL 100 MG TABLET (FP) PO SCH (09:16)
[2023-03-10] MEDS: levETIRAcetam 500 MG TABLET (FP) PO SCH ×2 (09:16→22:46)
[2023-03-10] MEDS: BUPRENORPHINE/NALOXONE 1 EACH, BUPRENORPHINE/NALOXONE 2 EACH SL SCH (09:17)
[2023-03-10] MEDS: ENOXAPARIN NA (PORCINE) 40 MG/0.4 ML DISP.SYRIN SQ SCH (09:20)
[2023-03-10] MEDS ORDERED: ACETAMINOPHEN WITH CODEINE 300MG/30MG TABLET PO ONE (09:22)
[2023-03-10] MEDS ORDERED: ACETAMINOPHEN WITH CODEINE 300MG/30MG TABLET PO PRN (09:37)
[2023-03-10 09:50] LABS: BASO % 0.7 % (0-2.0); EOS % 2.5 % (0-4.5); HEMATOCRIT 38.2 % (35.4-49); HEMOGLOBIN 13.2 GM/dL (11.7-16.9); LYMPH % 16.2 % (8-40); MCH 31.9 pg (25.7-33.7); MCHC 34.6 g/dl (32.0-35.9); MEAN CELL VOLUME 92.4 fl (80-96); MEAN PLT VOLUME 7.7 fl (7.5-11.1); MONO % 9.1 % (3.8-10.2); NEUT % 71.5 % (42.8-82.8); PLATELET COUNT 419 10^3/uL (134-434); RBC 4.13 M/mm3 (4.00-5.60); RDW 12.4 % (11.9-15.9); WHITE BLOOD COUNT 7.7 K/mm3 (4.0-10.0)
[2023-03-10] MEDS: LORazepam 2 MG/ML SDV VIAL IM PRN ×3 (09:53→21:40)
[2023-03-10 10:11] LABS: POTASSIUM 4.2 mmol/L (3.5-5.1)
[2023-03-10 10:22] LABS: ALBUMIN 3.7 g/dl (3.4-5.0); BLOOD UREA NITROGEN 16.6 mg/dL (7-18)
[2023-03-10 10:23] LABS: CALCIUM 9.9 mg/dL (8.5-10.1)
[2023-03-10 10:25] LABS: CREATININE 0.7 mg/dL (0.55-1.3)
[2023-03-10 10:27] LABS: BILIRUBIN,TOTAL 0.4 mg/dL (0.2-1); TOT PROT 7.6 g/dl (6.4-8.2)
[2023-03-10] MEDS: MUPIROCIN CA 2% TOPICAL CREAM 15 GM TUBE TP SCH (11:38)
[2023-03-10] MEDS: OLANZapine 10 MG TABLET PO SCH (22:47)
[2023-03-11] MEDS: MUPIROCIN CA 2% TOPICAL CREAM 15 GM TUBE TP SCH ×3 (01:49→23:52)
[2023-03-11] MEDS: CEPHALEXIN MONOHYDRATE 500 MG CAPSULE (UD) PO SCH ×6 (01:49→23:11)
[2023-03-11] MEDS: chlordiazePOXIDE 5 MG CAPSULE PO SCH ×4 (05:57→23:12)
[2023-03-11] MEDS: LORazepam 2 MG/ML SDV VIAL IM PRN ×2 (05:58→10:30)
[2023-03-11] MEDS: CHLORHEXIDINE GLUCONATE 4% CLEANSER FOR DECOLONIZATION TP SCH (07:55)
[2023-03-11 08:35] LABS: BASO % 0.7 % (0-2.0); EOS % 3.8 % (0-4.5); HEMATOCRIT 37.6 % (35.4-49); HEMOGLOBIN 12.8 GM/dL (11.7-16.9); MCH 31.3 pg (25.7-33.7); MEAN CELL VOLUME 92.3 fl (80-96); MEAN PLT VOLUME 8.1 fl (7.5-11.1); MONO % 10.7 % (3.8-10.2); NEUT % 65.8 % (42.8-82.8); PLATELET COUNT 420 10^3/uL (134-434); RBC 4.07 M/mm3 (4.00-5.60); RDW 12.6 % (11.9-15.9); WHITE BLOOD COUNT 6.7 K/mm3 (4.0-10.0)
[2023-03-11 08:54] LABS: POTASSIUM 4.2 mmol/L (3.5-5.1)
[2023-03-11 08:58] LABS: ALBUMIN 3.6 g/dl (3.4-5.0); CALCIUM 9.6 mg/dL (8.5-10.1)
[2023-03-11 08:59] LABS: BLOOD UREA NITROGEN 14.9 mg/dL (7-18)
[2023-03-11 09:02] LABS: CREATININE 0.7 mg/dL (0.55-1.3)
[2023-03-11 09:03] LABS: BILIRUBIN,TOTAL 0.5 mg/dL (0.2-1); TOT PROT 7.4 g/dl (6.4-8.2)
[2023-03-11] MEDS: levETIRAcetam 500 MG TABLET (FP) PO SCH ×3 (09:18→23:43)
[2023-03-11] MEDS: ENOXAPARIN NA (PORCINE) 40 MG/0.4 ML DISP.SYRIN SQ SCH (09:18)
[2023-03-11] MEDS: MULTIVITAMINS (DAILY MVI) TABLET (FP) PO SCH (09:19)
[2023-03-11] MEDS: THIAMINE HCL 100 MG TABLET (FP) PO SCH (09:19)
[2023-03-11] MEDS: BUPRENORPHINE/NALOXONE 1 EACH, BUPRENORPHINE/NALOXONE 2 EACH SL SCH (09:19)
[2023-03-11] MEDS: FLUCONAZOLE 100 MG TABLET (UD) PO SCH (09:19)
[2023-03-11] MEDS: NICOTINE 14 MG/24 HOURS TOPICAL PATCH TD SCH (15:31)
[2023-03-11] MEDS: OLANZapine 10 MG TABLET PO SCH ×2 (23:11→23:43)
[2023-03-12] MEDS: CHLORHEXIDINE GLUCONATE 4% CLEANSER FOR DECOLONIZATION TP SCH (02:57)
[2023-03-12] MEDS: CEPHALEXIN MONOHYDRATE 500 MG CAPSULE (UD) PO SCH ×3 (06:43→17:56)
[2023-03-12 09:10] LABS: INR 1.12 (0.83-1.09)
[2023-03-12 09:12] LABS: ACTIVATED PTT 23.1 SECONDS (25.2-36.5)
[2023-03-12 09:24] LABS: CALCIUM 9.6 mg/dL (8.5-10.1)
[2023-03-12 09:25] LABS: ALBUMIN 3.6 g/dl (3.4-5.0); BLOOD UREA NITROGEN 11.9 mg/dL (7-18); MAGNESIUM 2.2 mg/dL (1.8-2.4)
[2023-03-12 09:28] LABS: CREATININE 0.7 mg/dL (0.55-1.3); PHOSPHOROUS 4.3 mg/dL (2.5-4.9)
[2023-03-12 09:29] LABS: BILIRUBIN,TOTAL 0.4 mg/dL (0.2-1)
[2023-03-12 09:30] LABS: TOT PROT 7.5 g/dl (6.4-8.2)
[2023-03-12] MEDS: ENOXAPARIN NA (PORCINE) 40 MG/0.4 ML DISP.SYRIN SQ SCH (10:37)
[2023-03-12] MEDS: NICOTINE 14 MG/24 HOURS TOPICAL PATCH TD SCH (10:37)
[2023-03-12] MEDS: FLUCONAZOLE 100 MG TABLET (UD) PO SCH (10:37)
[2023-03-12] MEDS: MUPIROCIN CA 2% TOPICAL CREAM 15 GM TUBE TP SCH (10:38)
[2023-03-12] MEDS: BUPRENORPHINE/NALOXONE 1 EACH, BUPRENORPHINE/NALOXONE 2 EACH SL SCH (10:38)
[2023-03-12] MEDS: MULTIVITAMINS (DAILY MVI) TABLET (FP) PO SCH (10:38)
[2023-03-12] MEDS: THIAMINE HCL 100 MG TABLET (FP) PO SCH (10:38)
[2023-03-12] MEDS: levETIRAcetam 500 MG TABLET (FP) PO SCH (10:38)
[2023-03-12 12:39] LABS: BASO % 1.4 % (0-2.0); HEMATOCRIT 38.8 % (35.4-49); HEMOGLOBIN 13.3 GM/dL (11.7-16.9); LYMPH % 13.7 % (8-40); MCH 31.7 pg (25.7-33.7); MCHC 34.1 g/dl (32.0-35.9); MEAN CELL VOLUME 92.7 fl (80-96); MONO % 6.1 % (3.8-10.2); NEUT % 76.8 % (42.8-82.8); PLATELET COUNT 474 10^3/uL (134-434); RBC 4.19 M/mm3 (4.00-5.60); RDW 12.7 % (11.9-15.9); WHITE BLOOD COUNT 8.5 K/mm3 (4.0-10.0)
[2023-03-12 13:29] VITALS: RESP 20; TEMP 98.2
[2023-03-12 18:09] VITALS: BP 137/77; PULSE 109
== END 2023-03-12 18:10 | disposition left against medical advice (07) | DRG 770 ==
LOC: JER 12:26 → JERBED 17:25 → J4W 22:29 → OBSVTOIN 03-02 09:48 → JICU 03-03 19:12 → J7W 03-08 16:40
PROVIDERS: ADMIT Internal Medicine; ATTEND Internal Medicine
DX: F11.23 Opioid dependence with withdrawal (principal); I10 Essential (primary) hypertension; R56.9 Unspecified convulsions; R94.31 Abnormal electrocardiogram [ECG] [EKG]; F19.10 Other psychoactive substance abuse, uncomplicated; R01.1 Cardiac murmur, unspecified; F32.A Depression, unspecified; R42 Dizziness and giddiness; M62.82 Rhabdomyolysis; E87.6 Hypokalemia; E83.39 Other disorders of phosphorus metabolism; R41.0 Disorientation, unspecified; F39 Unspecified mood [affective] disorder; D64.9 Anemia, unspecified; L03.113 Cellulitis of right upper limb; R45.1 Restlessness and agitation; Z53.29 Procedure and treatment not carried out because of patient's decision for other reasons
CPT/HCPCS: 36415; 70450-TC; 71045-TC-FY; 72125-TC; 76775-TC; 80048; 80053; 80184; 80307; 81003; 82550; 82553; 82803; 82962; 83605; 83735; 84100; 84484; 85025; 85610; 85730; 87081; 87635; 93005; 93010; 97116-GP; 97161-GP; 99291; G0378